=== PATIENT | male | born 1945 | race Caucasian/White ===

== ENCOUNTER 2022-08-23 11:18 | Outpatient (REF) | payer MEDICARE, SELFPAY ==
--- NOTE | ~2022-08-23 | XR_ITS ---
EXAMINATION: XR CERVICAL SPINE XR THORACIC SPINE XR LUMBAR SPINE XR SACROILIAC JOINTS CLINICAL INFORMATION: Ankylosing spondylitis. COMPARISON: None available. TECHNIQUE: Five-view cervical spine, 3 view thoracic spine, 5 view lumbosacral spine, and three-view sacroiliac joint study. FINDINGS: CERVICAL SPINE: No abnormal prevertebral soft tissue swelling is seen. Alignment is unremarkable. No acute fracture is evident. There is disc space narrowing seen at the C5-C6 level. There is some mild marginal spurring seen at C3-C7. There is some degenerative narrowing with spurring seen involving the anterior atlantoaxial space. No significant odontoid erosion is noted. There is some spurring of the joints of Luschka with some mild anterior neural foraminal encroachment seen at the C5-C6 level bilaterally. There is some facet degenerative change noted at C3-C5 on the right and at the C2-C3 level on the left. Carotid artery calcification is seen. THORACIC SPINE: AP and lateral views and swimmer's view of the thoracic spine were performed. No acute fracture is appreciated. No subluxation is seen. The disc spaces are generally maintained. There is spurring with disc space bridging throughout the thoracic spine with calcification of the anterior longitudinal ligament. No abnormal paraspinal line bulge is appreciated. There is minimal scoliosis present which may be positional in nature. LUMBAR SPINE: There are 5 cty-bbm-bvuqhnh lumbar vertebra. Disc space narrowing is seen at L3-S1 which is most significant at the L4-L5 and L5-S1 levels. There is facet arthropathy present at L3-S1. There is bony bridging seen at multiple levels with the appearance of bamboo spine. No acute fracture, spondylolisthesis, or spondylolysis is appreciated. The pedicles appear intact. There is elongation of the L5 transverse processes bilateral with pseudoarticulations, with the superior iliac bones (Bertolotti's syndrome). Calcified abdominal aorta is present without evidence of aneurysm. SACROILIAC JOINTS: There is irregularity of the sacroiliac joints bilaterally with narrowing and what appears to be some degree of fusion/ankylosis. No destructive bony lesion identified. XR/XR sacroiliac joint min 3V IMPRESSION: Degenerative disc disease and facet arthropathy at multiple levels as described above with some regions of ankylosis, with the appearance of bamboo spine and consistent with ankylosing spondylitis. Fusion of the sacroiliac joints with pseudoarticulations of transverse processes of L5 bilaterally.
--- NOTE | ~2022-08-23 | XR_ITS ---
EXAMINATION: XR CERVICAL SPINE XR THORACIC SPINE XR LUMBAR SPINE XR SACROILIAC JOINTS CLINICAL INFORMATION: Ankylosing spondylitis. COMPARISON: None available. TECHNIQUE: Five-view cervical spine, 3 view thoracic spine, 5 view lumbosacral spine, and three-view sacroiliac joint study. FINDINGS: CERVICAL SPINE: No abnormal prevertebral soft tissue swelling is seen. Alignment is unremarkable. No acute fracture is evident. There is disc space narrowing seen at the C5-C6 level. There is some mild marginal spurring seen at C3-C7. There is some degenerative narrowing with spurring seen involving the anterior atlantoaxial space. No significant odontoid erosion is noted. There is some spurring of the joints of L[place]chka with some mild anterior neural foraminal encroachment seen at the C5-C6 level bilaterally. There is some facet degenerative change noted at C3-C5 on the right and at the C2-C3 level on the left. Carotid artery calcification is seen. THORACIC SPINE: AP and lateral views and swimmer's view of the thoracic spine were performed. No acute fracture is appreciated. No subluxation is seen. The disc spaces are generally maintained. There is spurring with disc space bridging throughout the thoracic spine with calcification of the anterior longitudinal ligament. No abnormal paraspinal line bulge is appreciated. There is minimal scoliosis present which may be positional in nature. LUMBAR SPINE: There are 5 fhj-ygz-fihlapo lumbar vertebra. Disc space narrowing is seen at L3-S1 which is most significant at the L4-L5 and L5-S1 levels. There is facet arthropathy present at L3-S1. There is bony bridging seen at multiple levels with the appearance of bamboo spine. No acute fracture, spondylolisthesis, or spondylolysis is appreciated. The pedicles appear intact. There is elongation of the L5 transverse processes bilateral with pseudoarticulations, with the superior iliac bones (Bertolotti's syndrome). Calcified abdominal aorta is present without evidence of aneurysm. SACROILIAC JOINTS: There is irregularity of the sacroiliac joints bilaterally with narrowing and what appears to be some degree of fusion/ankylosis. No destructive bony lesion identified. XR/XR lumbar spine 4V min IMPRESSION: Degenerative disc disease and facet arthropathy at multiple levels as described above with some regions of ankylosis, with the appearance of bamboo spine and consistent with ankylosing spondylitis. Fusion of the sacroiliac joints with pseudoarticulations of transverse processes of L5 bilaterally.
--- NOTE | ~2022-08-23 | XR_ITS ---
EXAMINATION: XR CERVICAL SPINE XR THORACIC SPINE XR LUMBAR SPINE XR SACROILIAC JOINTS CLINICAL INFORMATION: Ankylosing spondylitis. COMPARISON: None available. TECHNIQUE: Five-view cervical spine, 3 view thoracic spine, 5 view lumbosacral spine, and three-view sacroiliac joint study. FINDINGS: CERVICAL SPINE: No abnormal prevertebral soft tissue swelling is seen. Alignment is unremarkable. No acute fracture is evident. There is disc space narrowing seen at the C5-C6 level. There is some mild marginal spurring seen at C3-C7. There is some degenerative narrowing with spurring seen involving the anterior atlantoaxial space. No significant odontoid erosion is noted. There is some spurring of the joints of [place]chka with some mild anterior neural foraminal encroachment seen at the C5-C6 level bilaterally. There is some facet degenerative change noted at C3-C5 on the right and at the C2-C3 level on the left. Carotid artery calcification is seen. THORACIC SPINE: AP and lateral views and swimmer's view of the thoracic spine were performed. No acute fracture is appreciated. No subluxation is seen. The disc spaces are generally maintained. There is spurring with disc space bridging throughout the thoracic spine with calcification of the anterior longitudinal ligament. No abnormal paraspinal line bulge is appreciated. There is minimal scoliosis present which may be positional in nature. LUMBAR SPINE: There are 5 [id number]-[id number]-[id number] lumbar vertebra. Disc space narrowing is seen at L3-S1 which is most significant at the L4-L5 and L5-S1 levels. There is facet arthropathy present at L3-S1. There is bony bridging seen at multiple levels with the appearance of bamboo spine. No acute fracture, spondylolisthesis, or spondylolysis is appreciated. The pedicles appear intact. There is elongation of the L5 transverse processes bilateral with pseudoarticulations, with the superior iliac bones (Bertolotti's syndrome). Calcified abdominal aorta is present without evidence of aneurysm. SACROILIAC JOINTS: There is irregularity of the sacroiliac joints bilaterally with narrowing and what appears to be some degree of fusion/ankylosis. No destructive bony lesion identified. XR/XR cervical spine 4V IMPRESSION: Degenerative disc disease and facet arthropathy at multiple levels as described above with some regions of ankylosis, with the appearance of bamboo spine and consistent with ankylosing spondylitis. Fusion of the sacroiliac joints with pseudoarticulations of transverse processes of L5 bilaterally.
--- NOTE | ~2022-08-23 | XR_ITS ---
EXAMINATION: XR CERVICAL SPINE XR THORACIC SPINE XR LUMBAR SPINE XR SACROILIAC JOINTS CLINICAL INFORMATION: Ankylosing spondylitis. COMPARISON: None available. TECHNIQUE: Five-view cervical spine, 3 view thoracic spine, 5 view lumbosacral spine, and three-view sacroiliac joint study. FINDINGS: CERVICAL SPINE: No abnormal prevertebral soft tissue swelling is seen. Alignment is unremarkable. No acute fracture is evident. There is disc space narrowing seen at the C5-C6 level. There is some mild marginal spurring seen at C3-C7. There is some degenerative narrowing with spurring seen involving the anterior atlantoaxial space. No significant odontoid erosion is noted. There is some spurring of the joints of L[place]chka with some mild anterior neural foraminal encroachment seen at the C5-C6 level bilaterally. There is some facet degenerative change noted at C3-C5 on the right and at the C2-C3 level on the left. Carotid artery calcification is seen. THORACIC SPINE: AP and lateral views and swimmer's view of the thoracic spine were performed. No acute fracture is appreciated. No subluxation is seen. The disc spaces are generally maintained. There is spurring with disc space bridging throughout the thoracic spine with calcification of the anterior longitudinal ligament. No abnormal paraspinal line bulge is appreciated. There is minimal scoliosis present which may be positional in nature. LUMBAR SPINE: There are 5 cti-okx-mpntsrj lumbar vertebra. Disc space narrowing is seen at L3-S1 which is most significant at the L4-L5 and L5-S1 levels. There is facet arthropathy present at L3-S1. There is bony bridging seen at multiple levels with the appearance of bamboo spine. No acute fracture, spondylolisthesis, or spondylolysis is appreciated. The pedicles appear intact. There is elongation of the L5 transverse processes bilateral with pseudoarticulations, with the superior iliac bones (Bertolotti's syndrome). Calcified abdominal aorta is present without evidence of aneurysm. SACROILIAC JOINTS: There is irregularity of the sacroiliac joints bilaterally with narrowing and what appears to be some degree of fusion/ankylosis. No destructive bony lesion identified. XR/XR thoracic spine 3V IMPRESSION: Degenerative disc disease and facet arthropathy at multiple levels as described above with some regions of ankylosis, with the appearance of bamboo spine and consistent with ankylosing spondylitis. Fusion of the sacroiliac joints with pseudoarticulations of transverse processes of L5 bilaterally.
[2022-08-23 12:53] LABS: MANUAL DIFF FLAG NO
[2022-08-23 13:21] LABS: Basophils Percent Auto 0.4 % (0-2); Eosinophils Percent Auto 0.4 % (0-4); Hematocrit 39.7 % (42.0-52.0); Imm Gran Abs Auto 0.02 X10*3/uL (0.00-0.03); Imm Gran Pct Auto 0.2 % (0.0-0.4); Lymphocytes Absolute Auto 1.5 X10*3/uL (1.2-4.9); Lymphocytes Percent Auto 17.5 % (20-40); Mean Corpuscular HGB Conc 32.7 g/dl (31.0-36.0); Mean Corpuscular Hemoglobin 29.5 pg (27.0-33.0); Mean Platelet Volume 9.5 fL (9.4-12.4); Monocytes Absolute Auto 0.5 X10*3/uL (0.1-1.2); Monocytes Percent Auto 6.1 % (2-11); Neutrophils Absolute Auto 6.3 x10*3/uL (2.0-8.3); Neutrophils Percent Auto 75.4 % (45-73); Platelet Count 227 X10*3/uL (160-400); Red Blood Count 4.41 X10*6/uL (4.60-5.80); Red Cell Distribution Width 13.8 % (11.0-16.0); White Blood Count 8.4 X10*3/uL (4.8-10.8)
[2022-08-23 14:05] LABS: Alanine Aminotransferase 12 U/L (0-40); Albumin Level 4.1 g/dL (3.5-5.0); Alkaline Phosphatase 52 U/L (39-117); Anion Gap 11 (12-20); Aspartate Amino Transferase 18 U/L (5-37); Bilirubin Total 0.8 mg/dL (0.0-1.0); Blood Urea Nitrogen 14 mg/dL (9-16); C Reactive Protein 0.21 mg/dL (< or = 0.50); Carbon Dioxide 28 mmol/L (22-29); Chloride 106 mmol/L (96-108); Erythrocyte Sedimentation Rate 21 MM/HR (0-15); Estimated Glomerular Filt Rate > 60; Glucose Random 100 mg/dL (60-115); Potassium 4.2 mmol/L (3.3-5.1); Rheumatoid Factor < 13.0 IU/mL (<15.0); Sodium 141 mmol/L (135-145); Total Protein 6.6 g/dL (6.5-8.0)
[2022-08-24 04:41] LABS: HBS Num1 0.31 mIU/mL (0-7.99); HBc Num1 0.08 S/CO (0.00-0.79); HBsAGNum1 0.34 S/CO (0.00-0.99); Hepatitis A Antibody IgM 0.17 Index (0-0.79); Hepatitis B Core Antibody Nonreactive (Nonreactive); Hepatitis B Surface Antigen Negative (Negative); ~HepC Num1 0.09 S/CO (0.00-0.79); ~Hepatitis A Antibody IgM Nonreactive (Nonreactive); ~Hepatitis B Surface Antibody NONREACTIVE (Nonreactive); ~Hepatitis C Antibody Nonreactive (Nonreactive)
[2022-08-25 13:04] LABS: TS Negative Control Passed; TS Panel A 0; TS Panel B 0; TS Positive Control Passed; TSpotTB Negative (Negative)
[2022-08-29 09:24] LABS: HLA B27 Negative (Negative)
[2022-08-29 12:19] LABS: IgA 334 mg/dL (70-320); IgG 887 mg/dL (600-1540); IgM 79 mg/dL (50-300)
[2022-08-29 12:53] LABS: Cyclic Citrullinated Peptide <16 UNITS
[2022-08-31 21:53] LABS: Prot Elec - Albumin 3.9 g/dL (3.8-4.8); Prot Elec - Alpha1 0.3 g/dL (0.2-0.3); Prot Elec - Alpha2 0.8 g/dL (0.5-0.9); Prot Elec - Beta 1 0.6 g/dL (0.4-0.6); Prot Elec - Beta 2 0.3 g/dL (0.2-0.5); Prot Elec - Gamma 0.9 g/dL (0.8-1.7); Prot Elec - Total Protein 6.7 g/dL (6.1-8.1)
== END 2022-08-23 11:19 | disposition home or self-care (01) ==
LOC: HO.LAB 11:18
PROVIDERS: Visit Provider Student in an Organized Health Care Education/Training Program
DX: Z11.59 Encounter for screening for other viral diseases (principal); Z11.7 Encounter for testing for latent tuberculosis infection; M45.9 Ankylosing spondylitis of unspecified sites in spine; M25.571 Pain in right ankle and joints of right foot; M45.0 Ankylosing spondylitis of multiple sites in spine; Z72.89 Other problems related to lifestyle
CPT/HCPCS: 36415; 72050; 72072; 72110; 72202; 80053; 82784; 84165; 85025; 85652; 86140; 86200; 86334; 86431; 86481; 86704; 86706; 86709; 86803; 86812; 87340; 99202

== ENCOUNTER 2022-11-23 11:56 | Outpatient (AMB) | payer MEDICARE, SELFPAY ==
--- NOTE | 2022-11-23 11:57 | MHC.OFFVIS ---
Intake Vital Signs 11/23/22 11:58 Height 6 ft Weight 171 lb 11.841 oz BMI 23.3 BP 140/72 H Blood Pressure Location Rt brachial Position Sitting Pulse 63 Pulse Source Pulse Oximeter Temp 98.0 F Temp Source Skin Pulse Oximetry (%) 96 Intake Visit Reasons: - Confirmed Intake Note: Pt seen today for follow up. Control Chemist Required: No Accompanied by: Self / Same As Patient Allergies oxycodone [From OxyContin] Adverse Reaction (Unknown, Unverified 11/23/22 12:03) Unknown sulfadiazine Adverse Reaction (Unknown, Unverified 11/23/22 12:03) Unknown Medication List - Last Reconciled 11/23/22 by Juan Melvin MD amlodipine 2.5 mg PO DAILY donepezil 5 mg PO DAILY folic acid 5 mg PO DAILY hydrocodone-acetaminophen 7.5-325 mg 1 tab PO Q8H PRN indomethacin ER 75 mg PO DAILY PRN methotrexate sodium 20 mg PO QWEEK pravastatin 80 mg PO DAILY HPI HPI Comments History of Present Illness Details 77-year-old male with ankylosing spondylitis returns for follow-up. Back in August patient developed an episode of bilateral loss of vision that lasted about 15 seconds. He had extensive evaluation by Neurology and vascular surgery. He had CT angiogram of the head and neck as well as an MRI of the brain. He states that no added therapy or procedure was suggested by multiple specialists. He has not had any recurrent symptoms. Patient continues to get intermittent episodes of central back pain and spasms. He takes indomethacin for these episodes which occur about once a month. Which provides moderate relief. More recently he has been having right knee pain swelling, as well as feeling that his knee leonardo. He denies any trauma to his knees. He had a steroid injection last month for his right knee which provided some relief. He denies any pain or swelling of his hands, fingers or toes. Initial history: This is a 77-year-old male with past medical history of ankylosing spondylitis who presents as a new patient. 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 Patient stated that around 25 years ago he was diagnosed with iritis and ultimately was diagnosed with ankylosing spondylitis. He was initially treated only with hydrocodone 10 in the medicine was added. Per patient he does not recall being started on a biologic until he was evaluated by Dr. Urbina 2-3 years ago when he was started on methotrexate. Patient stated that he would usually get iritis about once a year but since getting started on iritis it has been less frequent. He cannot tell whether methotrexate is helping him otherwise. Per Dr. Urbina patient's inflammatory markers normalized on methotrexate. States that he has morning stiffness of his back lasting 1 hour improved with stretching and moving around. He had a stroke 2-3 years ago and since then has had some swallowing difficulties but does not believe he food gets stuck in his throat or chest. Denies any bowel complaints. He had a colonoscopy years ago which was unremarkable. 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 GERD (gastroesophageal reflux disease) Hyperlipidemia Hypertension Peripheral vascular disease Surgical History History of esophagogastroduodenoscopy (EGD) Hx of colonoscopy Family History Mother Dementia Schizophrenia Bipolar 1 disorder Father AAA (abdominal aortic aneurysm) Bladder cancer Dementia Hyperlipidemia Hypertension Rheumatoid arthritis Social History Household Members: None Alcohol intake: former Patient Tobacco Use Status: Former Tobacco user Quit Date: 40 years ago Current occupational status: retired Current occupation: [employer] Review of Systems Musc Reports arthralgias, Reports joint swelling and Reports stiffness Skin/Breast Reports system reviewed and no additional complaints, except as documented Physical Exam Vital Signs: Last Vital Signs Temp 98.0 F 11/23/22 11:58 Pulse 63 11/23/22 11:58 BP 140/72 H 11/23/22 11:58 Pulse Ox 96 11/23/22 11:58 BMI result Body Mass Index 23.3 Const General: cooperative and healthy appearing Nutritional Appearance: average body habitus Orientation/consciousness: patient oriented x3 Limitations: no limitations HEENT Head: Yes normocephalic and Yes atraumatic Resp Effort & Inspection: normal respiratory effort and able to speak in complete sentences Auscultation: clear to auscultation bilaterally Cardio Rate: regular rate Rhythm: regular rhythm Heart sounds: S1 normal heart sound present GI Inspection: No distended Palpation (GI): Soft to palpation and nontender Neuro General: patient oriented x3 Extrem Other: Ana test 10-112.8 cm Negative Trevin's test bilaterally Osteoarthritic changes of both hands with Heberden's and Mimi's nodes Right foot deformity bilateral ankle swelling without tenderness or erythema Right knee swelling, more and tenderness and pain with any range of motion. Clicking with Anna's test Right 2nd 3rd and 4th MTP tenderness Assessment & Plan Assessment & Plan (1) Ankylosing spondylitis: Comment: dx around 1997. hx of iritis Was on hydrocodone and indomethacin until MTX started without recurrent iritis Code(s): M45.9 - Ankylosing spondylitis of unspecified sites in spine Qualifiers: Ankylosing spondylitis location: multiple sites in spine Qualified Code(s): M45.0 - Ankylosing spondylitis of multiple sites in spine Plan: This is a 77-year-old male with ankylosing spondylitis who presents for follow-up. Patient was diagnosed 25 years ago, he had recurrent iritis and back stiffness. On exam today patient has a swollen and tender right knee. Will order a right knee MRI to evaluate for internal derangement verses signs of inflammatory arthritis. We discussed adding Humira to his treatment regimen. Patient prefers not to add any medications at this point. Continue methotrexate 20 mg once weekly and folic acid daily. Can continue to use indomethacin as needed, patient uses it about once a month. Follow-up in 3 months. 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
[2022-11-23 11:58] VITALS: BP 140/72; PULSE 63; TEMP 36.7; O2SAT 96; BMI 23.3
== END 2022-11-23 12:33 | disposition home or self-care (01) ==
PROVIDERS: Visit Provider Student in an Organized Health Care Education/Training Program
DX: M45.0 Ankylosing spondylitis of multiple sites in spine (principal); Z79.631 Long term (current) use of antimetabolite agent
CPT/HCPCS: 99214

== ENCOUNTER → 2022-11-23 11:56 | Outpatient (BNVA) | payer MEDICARE, SELFPAY | PROVIDERS: Visit Provider Student in an Organized Health Care Education/Training Program | DX: M45.0 Ankylosing spondylitis of multiple sites in spine (principal); M23.91 Unspecified internal derangement of right knee; I73.9 Peripheral vascular disease, unspecified; Z79.631 Long term (current) use of antimetabolite agent | CPT/HCPCS: 99212 ==

== ENCOUNTER 2023-04-21 13:14 | Outpatient (AMB) | payer MEDICARE, SELFPAY ==
[2023-04-21 13:25] VITALS: BP 132/78; RESP 15; TEMP 36.4; BMI 22.3
--- NOTE | 2023-04-21 13:25 | A.OFFVIS_ITS ---
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 Allergies oxycodone [From OxyContin] Adverse Reaction (Unknown, Unverified 04/21/23 13:27) Unknown sulfadiazine Adverse Reaction (Unknown, Unverified 04/21/23 13:27) Unknown Medication List - Last Reconciled 04/21/23 by Raquel Sullivan RN amlodipine 2.5 mg PO DAILY aspirin 81 mg PO DAILY cholecalciferol (vitamin D3) 125 mcg PO DAILY donepezil 5 mg PO DAILY ferrous sulfate 325 mg PO DAILY folic acid 5 mg PO DAILY hydrocodone-acetaminophen 7.5-325 mg 1 tab PO Q8H PRN indomethacin ER 75 mg PO DAILY PRN magnesium oxide 250 mg PO DAILY methotrexate sodium 20 mg (8 x 2.5 mg) PO QWEEK multivitamin (Daily Multi-Vitamin tablet) 1 tab PO DAILY pravastatin 80 mg PO DAILY HPI HPI Comments History of Present Illness Details 77-year-old male with ankylosing spondyl itis returns for follow-up. On methotrexate 20 mg weekly and folic acid 5 mg daily. (he buys folic acid [id number]) Patient states that he is doing about the same overall. About a month ago he started having a flare-up of his spinal arthritis, he was having neck pain and u pper back pain as well as eye pain and blurry vision. He called his PCP who prescribed him eyedrops which controlled his eye symptoms in 1 day. He states that his main problem is bilateral lower extremity neuropathy and right knee pain. Mentions that he was admitted with pneumonia back in February for 3 days. Initial history: This is a 77-year-old male with past medical history of ankylosing spondylitis who presents as a new patient. 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 Patient stated that around 25 years ago he was diagnosed with iritis and ultimately was diagnosed with ankylosing spondylitis. He was initially treated only with hydrocodone 10 in the medicine was added. Per patient he does not recall being started on a biologic until he was evaluated by Dr. Urbina 2-3 years ago when he was started on methotrexate. Patient stated that he would usually get iritis about once a year but since getting started on iritis it has been less frequent. He cannot tell whether me thotrexate is helping him otherwise. Per Dr. Urbina patient's inflammatory markers normalized on methotrexate. States that he has morning stiffness of his back lasting 1 hour improved with stretching and moving around. He had a stroke 2-3 years ago and since then has had some swallowing difficulties but does not believe he food gets stuck in his throat or chest. Denies any bowel complaints. He had a colonoscopy years ago which was unremarkable. 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 Review of Systems Musc Reports arthralgias, Reports numbness and Reports stiffness Skin/Breast Reports system reviewed and no additional complaints, except as documented Neuro Reports numbness Physical Exam Vital Signs: Last Vital Signs Temp 97.5 F 04/21/23 13:25 Resp 15 04/21/23 13:25 BP 132/78 04/21/23 13:25 BMI result Body Mass Index 22.3 Const General: cooperative and healthy appearing Nutritional Appearance: average body habitus Orientation/consciousness: patient oriented x3 Limitations: no limitations HEENT Head: Yes normocephalic and Yes atraumatic Resp Effort & Inspection: normal respiratory effort and able to speak in complete sentences Auscultation: clear to auscultation bilaterally Cardio Rate: regular rate Rhythm: regular rhythm Heart sounds: S1 normal heart sound present GI Inspection: No distended Palpation (GI): Soft to palpation and nontender Neuro General: patient oriented x3 Extrem Other: Negative Trevin's test bilaterally Osteoarthritic changes of both hands with Heberden's and Mimi's nodes Significant bilateral knee crepitus Right knee pain with flexion and extension Right foot deformity no ankle swelling or tenderness today Office Procedures Joint Injection/Drain Joint Injection/Drain Primary Site: right knee Prep: site was prepped using sterile technique and ethochloride spray was applied Injected: 40 mg of, Kenalog and other (2 mL of 1% lidocaine) Approach Used: medial parapatellar Procedure: The patient tolerated the procedure well Coding Details: With the patient's consent the right knee was prepped with ChloraPrep and alcohol. The skin was anesthetized with 2 cc of 1% lidocaine. The knee was then injected with 40 mg of triamcinolone and 1 cc of I % lidocaine. The patient tolerated the procedure with no immediate adverse effects. - Large joint Procedure code (CPT) selection complete Assessment & Plan Assessment & Plan (1) Ankylosing spondylitis: Comment: dx around 1997. hx of iritis Was on hydrocodone and indomethacin until MTX started (since then has been getting recurrent uveitis less than once yearly, rapidly resolves with steroid eye drop) Code(s): M45.9 - Ankylosing spondylitis of unspecified sites in spine Qualifiers: Ankylosing spondylitis location: multiple sites in spine Qualified Code(s): M45.0 - Ankylosing spondylitis of multiple sites in spine Plan: This is a 77-year-old male with ankylosing spondylitis who presents for follow- up. Patient was diagnosed 25 years ago, he had recurrent iritis and back stiffness. Patient has done fairly well on methotrexate over the years He continues to get rare flare-ups including spinal pain and uveitis. Uveitis episodes occur less than once a year and rapidly resolved with steroid eyedrops. He was admitted to the hospital with pneumonia back in February for 3 days. We discussed the risks and benefits of advancing his DMARD treatment versus keeping the treatment as is. For now I advised patient to split methotrexate in to 4 tabs twice. Continue with folic acid 5 mg daily (patient buys folic acid [id number]) Labs in 3 months and in 6 months before next visit (2) group home methotrexate user: Code(s): Z79.631 - group home (current) use of antimetabolite agent Plan: Get routine safety monitoring labs every 3 (3) Osteoarthritis of right knee: Code(s): M17.11 - Unilateral primary osteoarthritis, right knee Qualifiers: Osteoarthritis type: primary Qualified Code(s): M17.11 - Unilateral primary osteoarthritis, right knee Plan: Right knee MRI 11/2022 showed synovitis as well as torn medial meniscus and chronically torn ACL in addition to tricompartmental osteoarthritis. Patient does not have any significant instability. He is not interested in orthopedics evaluation at this point. With patient's consent, right knee was injected with Kenalog today. Injections can be repeated every 3-4 months (4) Internal derangement of knee: Code(s): M23.90 - Unspecified internal derangement of unspecified knee Qualifiers: Laterality: right Qualified Code(s): M23.91 - Unspecified internal derangement of right knee (5) Immunization counseling: Code(s): Z71.85 - Encounter for immunization safety counseling Plan: Patient received flu vaccine and COVID booster for this season. Advised patient to get the RSV vaccine. Hold methotrexate 2 weeks after vaccination Plan I spent 45 minutes reviewing patient's chart, evaluating patient, ordering diagnostic workup, counseling patient and documenting in the chart Orders: Orders Comprehensive Met. 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
== END 2023-04-21 14:11 | disposition home or self-care (01) ==
LOC: HO.RHE 13:14
PROVIDERS: Visit Provider Student in an Organized Health Care Education/Training Program
DX: M45.0 Ankylosing spondylitis of multiple sites in spine (principal); Z79.631 Long term (current) use of antimetabolite agent; M17.11 Unilateral primary osteoarthritis, right knee; M23.91 Unspecified internal derangement of right knee; Z71.85 Encounter for immunization safety counseling
CPT/HCPCS: 20610; 99215

== ENCOUNTER → 2023-04-21 13:14 | Outpatient (BNVA) | payer MEDICARE, SELFPAY | PROVIDERS: Visit Provider Student in an Organized Health Care Education/Training Program | DX: M17.11 Unilateral primary osteoarthritis, right knee (principal); M23.91 Unspecified internal derangement of right knee; M45.0 Ankylosing spondylitis of multiple sites in spine; Z79.631 Long term (current) use of antimetabolite agent | CPT/HCPCS: 20610; 99212; J3301 ==

== ENCOUNTER 2023-10-19 12:53 | Outpatient (AMB) | payer MEDICARE, SELFPAY ==
--- NOTE | 2023-10-19 12:55 | MHC.OFFVIS ---
Vital Signs 10/19/23 12:59 Height 6 ft Weight 161 lb 13.109 oz BMI 21.9 BP 130/72 Blood Pressure Location Rt brachial Position Sitting Respiration 15 Pulse 57 Pulse Source Pulse Oximeter Pulse Oximetry (%) 96 Oxygen Delivery Method Room Air Intake Visit Reasons: /lm Intake Note: Patient presents for . Allergies oxycodone [From OxyContin] Adverse Reaction (Unknown, Verified 10/19/23 13:00) Unknown sulfadiazine Adverse Reaction (Unknown, Verified 10/19/23 13:00) Unknown Medication List - Last Reconciled 10/19/23 by Juan Melvin MD amlodipine 2.5 mg PO DAILY aspirin 81 mg PO DAILY cholecalciferol (vitamin D3) 125 mcg PO DAILY donepezil 5 mg PO DAILY ferrous sulfate 325 mg PO DAILY folic acid 5 mg PO DAILY hydrocodone-acetaminophen 7.5-325 mg 1 tab PO Q8H PRN indomethacin ER 75 mg PO DAILY PRN magnesium oxide 250 mg PO DAILY methotrexate sodium 20 mg (8 x 2.5 mg) PO QWEEK multivitamin (Daily Multi-Vitamin tablet) 1 tab PO DAILY pravastatin 80 mg PO DAILY HPI Comments Details: 77-year-old male with ankylosing spondylitis returns for follow-up. On methotrexate 20 mg weekly and folic acid 5 mg daily. (he buys folic acid [id number]) Patient states that he is doing about the same overall. States that he had a tick bite as well as a house fly bite in his back, he was evaluated and the tick was pulled but not completely and was prescribed doxycycline. He took for day so far. He continues to have redness in the left side of his back. He states that the right knee injection done last visit I would it relief for 3-4 months. He is now starting to have some pain and stiffness of his knees, especially the right knee. Not had any episodes of iritis over the last 6 months Initial history: This is a 77-year-old male with past medical history of ankylosing spondylitis who presents as a new patient. 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 Patient stated that around 25 years ago he was diagnosed with iritis and ultimately was diagnosed with ankylosing spondylitis. He was initially treated only with hydrocodone 10 in the medicine was added. Per patient he does not recall being started on a biologic until he was evaluated by Dr. Urbina 2-3 years ago when he was started on methotrexate. Patient stated that he would usually get iritis about once a year but since getting started on iritis it has been less frequent. He cannot tell whether methotrexate is helping him otherwise. Per Dr. Urbina patient's inflammatory markers normalized on methotrexate. States that he has morning stiffness of his back lasting 1 hour improved with stretching and moving around. He had a stroke 2-3 years ago and since then has had some swallowing difficulties but does not believe he food gets stuck in his throat or chest. Denies any bowel complaints. He had a colonoscopy years ago which was unremarkable. 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 Ankylosing spondylitis Surgical History Hx of colonoscopy History of esophagogastroduodenoscopy (EGD) Family History Mother Dementia Schizophrenia Bipolar 1 disorder Father AAA (abdominal aortic aneurysm) Bladder cancer Dementia Hyperlipidemia Hypertension Rheumatoid arthritis Social History Household Members: None Alcohol intake: former Patient Tobacco Use Status: Former Tobacco user Current occupational status: retired Current occupation: [employer] Review of Systems Eyes Reports no additional complaints Musc Reports arthralgias and Reports stiffness Skin/Breast Reports rash Physical Exam Vital Signs: BMI result Body Mass Index 21.9 Const General: cooperative and healthy appearing Nutritional Appearance: average body habitus Orientation/consciousness: patient oriented x3 Limitations: no limitations HEENT Head: Yes normocephalic and Yes atraumatic Resp Effort & Inspection: normal respiratory effort and able to speak in complete sentences Auscultation: clear to auscultation bilaterally Cardio Rate: regular rate Rhythm: regular rhythm Heart sounds: S1 normal heart sound present GI Inspection: No distended Palpation (GI): Soft to palpation and nontender Skin Other: An area of erythema and warmth overlying the left back, in the thoracic area. Consistent with cellulitis Neuro General: patient oriented x3 Extrem Other: Negative Trevin's test bilaterally Osteoarthritic changes of both hands with Heberden's and Mimi's nodes Significant bilateral knee crepitus Right knee pain with flexion and extension Right foot deformity no ankle swelling or tenderness today Office Procedures Joint Injection/Drain Joint Injection/Drain Primary Site: right knee Prep: site was prepped using sterile technique and ethochloride spray was applied Injected: 40 mg of, Kenalog, with 1 mL of, 1% plain lidocaine and other Approach Used: medial parapatellar Procedure: The patient tolerated the procedure well Coding Details: With the patient's consent the right knee was prepped with ChloraPrep and alcohol. The skin was anesthetized with 2 cc of 1% lidocaine. The knee was then injected with 40 mg of triamcinolone and 1 cc of I % lidocaine. The patient tolerated the procedure with no immediate adverse effects. - Large joint Procedure code (CPT) selection complete Assessment & Plan Assessment & Plan (1) Ankylosing spondylitis: Comment: dx around 1997. hx of iritis Was on hydrocodone and indomethacin until MTX started (since then has been getting recurrent uveitis less than once yearly, rapidly resolves with steroid eye drop) Code(s): M45.9 - Ankylosing spondylitis of unspecified sites in spine Category: Medical Qualifiers: Ankylosing spondylitis location: multiple sites in spine Qualified Code(s): M45.0 - Ankylosing spondylitis of multiple sites in spine Plan: This is a 77-year-old male with ankylosing spondylitis who presents for follow-up. Patient was diagnosed 25 years ago, he had recurrent iritis and back stiffness. Patient has done fairly well on methotrexate over the years He continues to get rare flare-ups including spinal pain and uveitis. Uveitis episodes occur less than once a year and rapidly resolved with steroid eyedrops. Patient is doing reasonably well overall. Symptoms today are more related to degenerative arthritis. 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 Patient does not have any significant instability. He is not interested in orthopedics evaluation at this point. Last injection provided relief for 3-4 months. Day patient requesting repeat injection. With patient's consent, right knee was injected with Kenalog today. Injections can be repeated every 3-4 months (4) Internal derangement of knee: Code(s): M23.90 - Unspecified internal derangement of unspecified knee Category: Medical Qualifiers: Laterality: right Qualified Code(s): M23.91 - Unspecified internal derangement of right knee Plan: Right knee meniscal tear. Not interested in orthopedic evaluation at this point at this point (5) Cellulitis of back: Code(s): L03.312 - Cellulitis of back [any part except buttock] Category: Medical Plan: Advised patient to skip methotrexate next week. 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
[2023-10-19 12:59] VITALS: BP 130/72; PULSE 57; RESP 15; O2SAT 96; BMI 21.9
== END 2023-10-19 13:29 | disposition home or self-care (01) ==
PROVIDERS: Visit Provider Student in an Organized Health Care Education/Training Program
DX: M45.0 Ankylosing spondylitis of multiple sites in spine (principal); Z79.631 Long term (current) use of antimetabolite agent; M17.11 Unilateral primary osteoarthritis, right knee; M23.91 Unspecified internal derangement of right knee; L03.312 Cellulitis of back [any part except buttock and flank]
CPT/HCPCS: 20610; 99215

== ENCOUNTER → 2023-10-19 12:53 | Outpatient (BNVA) | payer MEDICARE, SELFPAY | PROVIDERS: Visit Provider Student in an Organized Health Care Education/Training Program | DX: M45.0 Ankylosing spondylitis of multiple sites in spine (principal); M17.11 Unilateral primary osteoarthritis, right knee; M23.91 Unspecified internal derangement of right knee; L03.312 Cellulitis of back [any part except buttock and flank]; Z79.631 Long term (current) use of antimetabolite agent | CPT/HCPCS: 20610; 99212 ==

== ENCOUNTER 2024-04-09 13:10 | Outpatient (AMB) | payer MEDICARE, SELFPAY ==
--- OUTSIDE RECORDS SUMMARY | 2024-04-09 13:12 | XMS_ITS | Data Portability ---
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 Plan of Treatment Reminders Order Date Submit Date Provider Last Modified By Organization Details Last Modified Time Details Appointments None recorded. Lab None recorded. Referral None recorded. Procedures None recorded. Surgeries None recorded. Imaging None recorded. Medication Orders doxycycline hyclate 100 mg capsule 2023 024 [facility] [place], [address], 15:17:18 doxycycline hyclate 100 mg capsule 2023 024 [facility] [place], [address], 12:09:49 Patient TargetsNo targets recorded. Patient Instructions Encounter Date Encounter Id Patient Instructions Last Modified By Organization Details Last Modified Time 09/17/2023 [id number] lyme disease: ca re instructions Not available 09/17/2023 15:17:11 tick bite: care instructions Not available 09/17/2023 15:17:35 avoid sun exposu re while on doxycycline local wound care for tick bite keep area clean, dry and covered apply triple antibiotic ointment to area twice daily watch for signs and symptoms of infection: increased pain, swelling, redness around area, warmth around area, oozing from wound, red streaking, fever if concern for infection or general worsening of your condition, seek immediate medical attention if you experience unusual rash, example Bulls eye appearing rash, fever, joint aches/pains seek immediate medical assistance You have had an Urgent Care Visit which is designed to address acute issues. It does not represent an exhaustive evaluation of your symptom complex, but is an attempt to treat and manage the most likely cause of your most pressing physical issues. If you are not improved in the time frame that we have discussed, please seek the advice of your PCP who is in a position to order further diagnostic testing and possible specialist consultation. If your condition is worsening despite the treatment recommendations please do not wait to see your PCP and do proceed to the closest ER where a comprehensive evaluation including consideration to lab and other diagnostic testing as well as consultation is more expeditiously accessible. If you were prescribed medications they have been directly submitted to your pharmacy on file. Please make sure you finish all your medications and if you develop major side effects related to them please do stop taking them and check with your PCP to see if you need to get an alternative medication. if you had any laboratory testing or XRAYs done at today's visit, please make sure you obtain your results from us tomorrow or the time frame discussed at your visit. Not available 09/17/2023 15:17:44 10/14/2023 [id number] Monitor for increasing redness, fevers, nausea, vomiting or additional concerns. [email or web address] Not available 10/14/2023 12:10:07 Reason for Referral None Reported. Medical Equipment None Reported. Allergies Allergen ID Allergen Name Allergen Category Reaction Reaction Severity Criticality Documentation Date Start Date Code Code System Note Provider Name and Address Organization Details Recorded Time [id number] Substance with sulfonami de structure and antibacte rial mechanism of action (substanc e) medicatio n itching severe Not available 09/17/[id number] [facility] 4 15:03:11 299217 acetamino phen / oxycodone medicatio n itching Not available Not available 09/17/[address] Kraus [place] [facility] 4 15:03:21 Medications Name Sig Start Date Stop Date Status Note LastModified by Organization Details LastModified Time doxycycline hyclate 100 mg capsule Take 1 capsule twice a day by oral route for 14 days. 024 active Not Available Not Available Not Avai lable Vitals Date Recorded Body height Body mass index (BMI) Body weight Body temperature Oxygen saturation Oxygen saturation in Arterial blood by Pulse oximetry Heart rate Systolic blood pressure Diastolic blood pressure Provider Name and Address Organization Details Last Updated DateTime 4 180.34 cm 23.7 kg/m2 57601.7 g 98 [degF] 97 % 97 % 60 /min 136 mm[Hg] 78 mm[Hg] Sola Sutton [place] [facility] 15:07:00 Date Recorded Body height Oxygen saturation Oxygen saturation in Arterial blood by Pulse oximetry Heart rate Body temperature Systolic blood pressure Diastolic blood pressure Provider Name and Address Organization Details Last Updated DateTime 4 180.34 cm 98 % 98 % 69 /min 97.9 [degF] 130 mm[Hg] 70 mm[Hg] Real Dela Cruz [facility] 11:42:57 Social History None recorded. Functional Status None recorded. Mental Status None recorded. Family History Nothing Reported. Medical History No medical history recorded. Past Encounters Encounter ID Performer Location Encounter Start Date Encounter Closed Date Diagnosis/Indication Diagnosis SNOMED-CT Code Diagnosis ICD10 Code [id number] Kelly Duenas MD [address] [address] 09/17/2023 14:48:06 09/17/2023 15:36:08 Tick bite 63853894 W57.XXXA Insect bit e to trunk - nonvenomous [id number] T14.8XXA [id number] Kylee Arias NP [address] [address] 10/14/2023 10:56:45 10/14/2023 12:16:15 Cellulitis 475355188 L03.90 Health Concerns Section Related Observation LastModified by Organization Detai ls LastModified Time None Recorded Concern Status LastModified by Organization Details LastModified Time None Recorded Advance Directives Directive None Recorded Payers Encounter Date Sequence Insurance Name Policy Number Policy Ackerman Covered Member ID Ackerman Member ID Guarantor Name 09/17/2023 1 [employer] - MEDICARE ADVANTAGE PLAN (MEDICARE REPLACEMENT HMO) [id number] 1 Daniele Ventura [id number] Daniele Ventura 10/14/2023 1 [facility] - MEDICARE ADVANTAGE PLAN (MEDICARE REPLACEMENT HMO) [id number] Daniele Ventura [id number] Daniele Ventura Notes Date Note Type Note Provider Name and Address Organization Details Recorded Time 09/17/2023 text/html 78 yr old male presents today due to a tick bite. Pt states the tick is embedded on the left hip/back. Pt attempted to have his friend remove it but was not successful. Pt believes that it may have been there for 3 to 4 days ago. DMB Patient presents with tick bite left hip region when trying to move it today not sure if it was removed in full. Might have been there for 3 or 4 days in total. No fever. [facility] Kelly Duenas MD [address] [place], [address], [facility] 09/17/2023 17:14:20 10/14/2023 text/html 78 y/o male presents today for insect bite. Pt states it happened a week ago. States he is unsure of what it is. States it is located on hi back. States it is not painful to touch. States the area is red. States he put triple antibiotic ointment on it. States he took one antibiotic that had left over to see if it did anything, unsure of what the name of it is.Z.L// Very active, bikes daily and lives alone. States he often gets bug bites while biking and may have had some bites he scratched and opened the skin-CM Kylee Arias NP [address] [facility] [place], [address], [facility] 10/14/2023 12:10:23
--- OUTSIDE RECORDS SUMMARY | 2024-04-09 13:12 | XMS_ITS | Continuity of Care Document ---
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 Name Role Phone Maria Vázquez DO Primary Care Physician [phone] [place] [facility] [place] 03/29[place]24 - 04/05/24 [facility] [address] [place] [address]- Encounter Diagnosis PVCs (premature ventricular contractions)(Discharge Diagnosis) - 03/29/24 Coronary artery calcification seen on CT scan(Discharge Diagnosis) - 03/29/24 Hyperlipidemia(Discharge Diagnosis) - 03/29/24 Hypertension(Discharge Diagnosis) - 03/29/24 Attending Physician: Enrique Byrd Admitting Physician: Enrique Byrd Referring Physician: Maria Vázquez DO Encounter Type: Office Visit Allergies, Adverse Reactions, Alerts Substance Criticality Severity Reaction Reaction Severity Status sulfADIAZINE Active OxyCONTIN Active Immunizations Given and Recorded Vaccine Date Status Refusal Reason influenza virus vaccine, inactivated 02/22/24 Spenser rded influenza virus vaccine, inactivated 02/22/23 Spenser rded influenza virus vaccine, inactivated 06/03/22 Give n influenza virus vaccine, inactivated 02/01/21 Spenser rded influenza virus vaccine, inactivated 02/21/18 Spenser rded influenza virus vaccine, inactivated 03/10/17 Give n influenza virus vaccine, inactivated 02/19/16 Give n influenza virus vaccine, inactivated 04/11/14 Give n influenza virus vaccine, inactivated 02/19/13 Give n influenza virus vaccine, inactivated 1 04/13/12 Gi ottoniel SARS-CoV-2(COVID-19)mRNA-LNP vac([id number]) 02/22/24 Recorded pneumococcal 20-valent conjugate vaccine 03/28/23 Recorded SARS-CoV-2(COVID-19)mRNA-LNP vac([id number]) 02/22/23 Recorded SARS-CoV-2 (COVID-19) mRNA BNT-162b2 vac 08/18/21 Recorded SARS-CoV-2 (COVID-19) mRNA BNT-162b2 vac 02/01/21 Recorded SARS-CoV-2 (COVID-19) mRNA BNT-162b2 vac 06/16/20 Given SARS-CoV-2 (COVID-19) mRNA BNT-162b2 vac 06/16/20 Recorded SARS-CoV-2 (COVID-19) mRNA BNT-162b2 vac 05/26/20 Recorded pneumococcal 23-valent vaccine 2 12/07/20 Given pneumococcal 23-valent vaccine 3 02/03/10 Given Influenza Virus Vaccine (oldterm) 03/08/19 Recorde d tetanus-diphtheria toxoids (Td) 02/19/16 Given tetanus-diphtheria toxoids (Td) 4 12/13/05 Given pneumococcal 13-valent vaccine 10/10/14 Given 1Admin Note: vis given 2Result Comment: [id number] 3Admin Note: vis given 4Admin Note: [facility] Medications acetaminophen-hydrocodone 325 mg-7.5 mg oral tablet 1 tablet, By Mouth, Every 8 hours, PRN Pain , Severe, NEEDED FOR SEVERE PAIN DUE TO ANKYLOSING SPONDYLITIS, # 20 tablet, 0 Refills, Maintenance, 02/28/24 12:06:00 PM [id number], Partial fill upon patient request if the prescription is for a schedule II opioid drug., 1 tablet By Mouth Every 8 hours,PRN:Pain , Severe,Instr: NEEDED FOR SEVERE PAIN DUE TO ANKYLOSING SPONDYLITIS, 180, cm, 02/20/24 16:19:00 EDT, Height, 71.9, kg, 01/10/24 11:27:00 EDT, Dry Weight Start Date: 02/28/24 Status: Ordered Quantity: 20.0 Unit: tablet Repeat number: 1 albuterol CFC free 90 mcg/inh inhalation aerosol 1, puffs, Inhalation, 4 times a day, PRN, # 6.7 Gm, Refills 0, Tot. Refills 0, Maintenance, 02/20/23 1:08:00 PM EDT, Aerosol, Route to Pharmacy Electronically, [id number], [facility], 178, cm, 02/16/23 13:12:00 EDT, Height, 74.4, kg, 02/02/23 1:07:00 EDT, Dry Weight Start Date: 02/20/23 Status: Ordered Quantity: 6.7 Unit: g Repeat number: 1 amLODIPine 5 mg oral tablet 5 mg, 1, tablet, By Mouth, Daily, # 30 tablet, Refills 2, Tot. Refills 2, Maintenance, 03/29/24 4:27:00 PM EST, Route to Pharmacy Electronically, [facility], Partial fill upon patient request if the prescription is for a schedule II opioid drug., 180, cm, 03/29/24 16:11:00 EST, Height, 71.9, kg, 01/10/24 11:27:00 EDT, Dry Weight Start Date: 03/29/24 Status: Ordered Quantity: 30.0 Unit: tablet Repeat number: 3 aspirin 81 mg oral capsule 1 capsule = 81 mg, By Mouth, Every 24 hours, 0 Refills, Maintenance, 02/02/23 10:04:00 AM EDT, Partial fill upon patient request if the prescription is for a schedule II opioid drug. Start Date: 02/02/23 Status: Ordered Repeat number: 1 BiPAP Equipment Maintenance, 03/05/24 11:39:00 AM EST, Supply Start Date: 03/05/24 Status: Ordered Repeat number: 1 Compression Stockings See Instructions, # 1 pair, Maintenance, surgical, calf length 20-30 mm Hg, 06/26/14 2:01:42 PM EST, Compound Start Date: 06/26/14 Status: Ordered Quantity: 1.0 Unit: pair Repeat number: 1 donepezil 5 mg oral tablet 1, tablet, By Mouth, Daily at bedtime, # 90 tablet, Refills 1, Maintenance, 12/19/23 11:06:00 AM EDT, Route to Pharmacy Electronically, [facility], 175, cm, 12/18/23 14:46:00 EDT, Height, 78.1, kg, 07/14/23 14:14:00 EDT, Dry Weight Start Date: 12/19/23 Status: Ordered Quantity: 90.0 Unit: tablet Repeat number: 1 doxepin 10 mg/ml oral concentrate 1.5 mL = 15 mg, By Mouth, Daily at bedtime, # 135 mL, 0 Refills, Maintenance, 02/06/24 12:15:00 PM EDT, [facility], Partial fill upon patient request if the prescription is for a schedule II opioid drug., 180, cm, 01/31/24 15:37:00 EDT, Height, 71.9, kg, 01/10/24 11:27:00 EDT, Dry Weight Start Date: 02/06/24 Status: Ordered Quantity: 135.0 Unit: mL Repeat number: 1 Evaluate and treat for orthotics Evaluate and treat for orthotics, See Instructions, # 1 each, Refills 0, Tot. Refills 0, Maintenance, right foot deformity and pain, dx M21.6X1, M79.671, 09/17/20 7:21:00 AM EDT, Supply Start Date: 09/17/20 Status: Ordered Quantity: 1.0 Unit: each Repeat number: 1 folic acid 1 mg oral tablet 5 tablets, By Mouth, Daily, # 450 tablet, Refills 0, Tot. Refills 0, Maintenance, 07/05/22 2:23:00 PM EDT, Route to Pharmacy Electronically, [facility], Partial fill upon patient request ifthe prescription is for a schedule II opioid drug., 176, cm, 06/28/22 10:51:00 EST, Height, 78.5, kg, 06/03/22 13:22:00 EST, Dry Weight Start Date: 07/05/22 Stop Date: 10/03/22 Status: Ordered Quantity: 450.0 Unit: tablet Repeat number: 1 indomethacin 75 mg oral capsule, extended release 1 capsule = 75 mg, By Mouth, Daily, PRN acute back pain, with food or milk and TUMS., # 20 capsule,1 Refills, Maintenance, 01/10/23 12:37:00 PM EDT, CR Capsule, [facility], Partial fill upon patient request if the prescription is for a schedule II opioid drug., 176, cm, 01/10/23 9:28:00 EDT, Height, 78.5, kg, 06/03/22 13:22:00 EST, Dry Weight Start Date: 01/10/23 Status: Ordered Quantity: 20.0 Unit: capsule Repeat number: 2 Iron Chews 15 mg oral tablet, chewable 1 tablet = 15 mg, By Mouth, Daily, # 30 tablet, 0 Refills, Maintenance, 02/16/23 1:13:00 PM EDT, Chew Tablet, Partial fill upon patient request if the prescription is for a schedule II opioid drug. Start Date: 02/16/23 Status: Ordered Quantity: 30.0 Unit: tablet Repeat number: 1 magnesium aspartate = 1,230 mg, By Mouth, 2 times a day, 0 Refills, Maintenance, 11/10/23 4:09:00 PM EDT, Partial fill upon patient request if the prescription is for a schedule II opioid drug. Start Date: 11/10/23 Status: Ordered Repeat number: 1 methotrexate 2.5 mg oral tablet 8 tablet, By Mouth, Every week, # 32 tablet, 0 Refills, Maintenance, 01/16/23 5:23:00 PM EDT, [facility], 176, cm, 01/10/23 9:28:00 EDT, Height, 78.5, kg, 06/03/22 13:22:00 EST, Dry Weight Start Date: 01/16/23 Stop Date: 02/13/23 Status: Ordered Quantity: 32.0 Unit: tablet Repeat number: 1 MiraLax oral powder for reconstitution = 17 Gm, By Mouth, Daily, # 510 Gm, 0 Refills, Maintenance, 12/19/23 9:41:00 AM EDT, REC Powder, [facility], Partial fill upon patient request if the prescription is for a schedule II opioid drug., 17 Gm By Mouth Daily, 175, cm, 12/18/23 14:46:00 EDT, Height, 78.1, kg, 07/14/23 14:14:00 EDT, Dry Weight Start Date: 12/19/23 Status: Ordered Quantity: 510.0 Unit: g Repeat number: 1 Multivitamin By Mouth, Daily, 0 Refills, Maintenance, 05/01/15 1:39:51 PM EST Start Date: 05/01/15 Status: Ordered Repeat number: 1 Myrbetriq 25 mg oral tablet, extended release 1 tablet = 25 mg, By Mouth, Daily, do not crush or chew, # 30 tablet, 11 Refills, Maintenance, 01/15/24 3:21:00 PM EDT, ER Tablet, [facility], Partial fill upon patient request if the prescription is for a schedule II opioid drug., 180, cm, 01/05/24 14:27:00 EDT, Height, 71.9, kg, 01/10/24 11:27:00 EDT, Dry Weight Start Date: 01/15/24 Status: Ordered Quantity: 30.0 Unit: tablet Repeat number: 12 Orthotics See Instructions, # 1 pair, Maintenance, [employer] Custom orthotics 1. Siff Top 2. MT offloadng bar all the way across DX: metatarsalgia, 09/06/13 2:35:15 PM EDT, Compound Start Date: 09/06/13 Status: Ordered Quantity: 1.0 Unit: pair Repeat number: 1 pravastatin 80 mg oral tablet 1 tablet, By Mouth, Daily, # 90 tablet, 3 Refills, Maintenance, 07/24/23 12:25:00 PM EDT, [facility], 178, cm, 07/14/23 14:19:00 EDT, Height, 78.1, kg, 07/14/23 14:14:00 EDT, Dry Weight Start Date: 07/24/23 Status: Ordered Quantity: 90.0 Unit: tablet Repeat number: 4 PT PT, See Instructions, # 1 each, Refills 0, Tot. Refills 0, Maintenance, please eval pt for PT, 11/20/13 1:33:26 PM EDT, Compound Start Date: 11/20/13 Status: Ordered Quantity: 1.0 Unit: each Repeat number: 1 tadalafil 10 mg oral tablet See Instructions, take 1 - 2 tablets by mouth daily as needed 30 minutes prior to sexual intercourse, # 10 tablet, 2 Refills, Maintenance, 02/20/24 4:19:00 PM EDT, Tablet, [facility], Partial fill upon patient request if the prescription is for a schedule II opioid drug., 180, cm, 01/31/24 15:37:00 EDT, Height, 71.9, kg, 01/10/24 11:27:00 EDT, Dry Weight Start Date: 02/20/24 Status: Ordered Quantity: 10.0 Unit: tablet Repeat number: 3 Vitamin C By Mouth, Daily, 0 Refills, Maintenance, 11/10/23 4:09:00 PM EDT, Partial fill upon patient request if the prescription is for a schedule II opioid drug. Start Date: 11/10/23 Status: Ordered Repeat number: 1 Vitamin D3 By Mouth, 0 Refills, Maintenance, 12/18/13 10:23:14 AM EDT Start Date: 12/18/13 Status: Ordered Repeat number: 1 Problem List Condition Confirmation Course Effective Dates Status H ealth Status Informant Foot deformity, acquired Confirmed Active Ankylosing spondylitis Confirmed Active Asthma Confirmed Active Backache Confirmed Active BPH loc w/o ur obs/LUTS Confirmed Active Calcified granuloma of lung Confirmed Active Chronic rhinitis Confirmed Active Epididymal cyst Confirmed Active Dizziness Confirmed Active Erectile dysfunction Confirmed Active 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 Confirmed Active Bilateral foot pain Confirmed Active GERD - Gastro-esophageal reflux disease Confirmed Active H/O: CVA (2012), residual right numbness, swallow issue Confirmed Active Low hemoglobin Confirmed Active History of stroke in adulthood Confirmed Active Hyperlipidemia Confirmed Active Hypertension Confirmed Active Low calcium levels Confirmed Active Frequent urination Confirmed Active Pulmonary nodule, left Confirmed Active MONA (obstructive sleep apnea) Confirmed Active Lower extremity pain, right Confirmed Active Pericardial effusion Confirmed Active PVD (peripheral vascular disease) 1 Confirmed Active Pleural effusion Confirmed Active Restless legs Confirmed Active Shallow breathing Confirmed Active Unintentional weight loss Confirmed Active 1Dr [facility] Diagnosis Diagnosis Type Effective Dates Health Status Clinical Service Informant Hyperlipidemia Discharge Diagnosis 03/29/24 Hypertension Discharge Diagnosis 03/29/24 PVCs (premature ventricular contractions) Discharge Diagnosis 03/29/24 Coronary artery calcification seen on CT scan Discharge Diagnosis 03/29/24 Vital Signs Most recent to oldest [Reference Range]: 1 Height 180 cm (03/29/24 4:11 PM) Weight 77 kg (03/29/24 4:11 PM) Oxygen Saturation [94-100 %] 100 % (03/29/24 4:11 PM) Pulse Rate [55-90 bpm] 67 bpm (03/29/24 4:11 PM) Body Mass Index [18.5-24.99 kg/m2] 23.77 kg/m2 (03/29/24 4:11 PM) Blood Pressure [90-138/55-84 mm Hg] 189/ 69mm Hg *H* (03/29/24 4:11 PM) Blood pressure sites Arm, left (03/29/24 4:11 PM) Weight Obtained Via Standing scale (03/29/24 4:11 PM) Social History Social History Type Response Smoking Status Former smoker, quit more than 30 days ago entered on: 07/11/23 Sex Sex Representation Male (finding) Cardiology Outpatient Note * Enrique Byrd: PERFORM Event Display: Cardiology Note Office Authored Date: [id number] Patient: ??JOCE ANDERSON ? Age:??78 Years?Sex:??Male?:??1945?? Indication for Consult FOLLOW UP VISIT, HTN History of Present Illness/Interval History Mr. Anderson is here for follow up. He was last seen by Dr. Chamberlain in December 2023. At the time, he reported lightheadedness and palpitations. He was noted to have atrial fibrillation in the hospital January 2023 but was never started on anticoagulation. He was referred for 48h Holter monitor??to screen for atrial fibrillation. 48h Holter showed baseline normal sinus rhythm with rare PACs and PVCswith a single 8 beat run of SVT without evidence of atrial fibrillation.? He reports feeling good.??He is under some stress today??because his blood pressure is high. His blood pressures at home seem to average in the 170s.??He notes that he gets a little lightheaded and dizzy when he is working hard. He attributes this to high blood pressure. He denies presyncope or syncope.? He notes occasional sensation of skipped beats but they do not bother him.??He denies orthopnea, PND, or lower extremity edema. ?? He is fairly active. He cuts wood and shovels snow. He has no limiting exertional symptoms.?? Review of Systems See HPI Physical Exam Vitals & Measurements HR:??67??(Peripheral)?? BP:??189/69?? SpO2:??100%?? HT:??180??cm?? WT:??77??kg?? BMI:??23.77?? Weight lb/oz: 169 lb 12 oz Constitutional: Alert, in no distress. Respiratory: Clear to auscultation. No wheezing, rales or rhonchi. Cardiovascular: Regular rate and rhythm, S1 S2. No murmurs, rubs, gallops. Extremities: Warm, no edema. No cyanosis or clubbing. Assessment/Plan 1.??Hypertension ??Blood pressure was significantly elevated on intake. It did improve a bit on my recheck to 172/66.?? His blood pressures are chronically elevated. He attributes his lightheadedness to high blood pressure interestingly. There was some concern that amlodipine was previously??causing his lightheadedness. Apparently he did not notice any improvement??even after coming off of amlodipine. After some discussion, we agreed to increase amlodipine to bring his blood pressure under better control. He will call with any issues.?? - Increase amlodipine 5mg daily. - Nurse blood pressure check in 2-4 weeks.?? 2.??Hyperlipidemia ??Continue pravastatin 80mg daily.?? 3.??PVCs (premature ventricular contractions) ??Rare PVCs on recent Holter monitor. No atrial fibrillation noted.?? 4.??Coronary artery calcification seen on CT scan ??Continues on statin and aspirin.?? Orders: Amlodipine, 5 mg, 1, tablet, By Mouth, Daily, # 30 tablet, Refills 2, Tot. Refills 2, Maintenance, 03/29/24 16:27:00 EST, Route to Pharmacy Electronically, [id number], Partial fill upon patient request if the prescription is for a schedule II opioid . Follow up Appointment ?? Follow up in 2 months.?? 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, acquired Frequent urination GERD - Gastro-esophageal reflux disease H/O: CVA (2012), residual right numbness, swallow issue History of stroke in adulthood Hyperlipidemia Hypertension Low calcium levels Low hemoglobin Lower extremity pain, right MONA (obstructive sleep apnea) Pericardial effusion Pleural effusion Pulmonary nodule, left PVD (peripheral vascular disease) Restless legs Shallow breathing Unintentional weight loss Procedure/Surgical History Esophagogastroduodenoscopy and biopsy: 09/05/14 Colonoscopy and EGD: 05/14/13 Home Medications acetaminophen-hydrocodone 325 mg-7.5 mg oral tablet, 1 tablet, By Mouth, Every 8 hours, PRN albuterol CFC free 90 mcg/inh inhalation aerosol, 1 puffs, Inhalation, 4 times a day, PRN amLODIPine 5 mg oral tablet, 5 mg= 1 tablet, By Mouth, Daily, 2 refills aspirin 81 mg oral capsule, 81 mg= 1 capsule, By Mouth, Every 24 hours BiPAP Equipment Compression Stockings, See Instructions donepezil 5 mg oral tablet, 1 tablet, By Mouth, Daily at bedtime doxepin 10 mg/ml oral concentrate, 15 mg= 1.5 mL, By Mouth, Daily at bedtime Evaluate and treat for orthotics, See Instructions folic acid 1 mg oral tablet, 5 tablets, By Mouth, Daily indomethacin 75 mg oral capsule, extended release, 75 mg= 1 capsule, By Mouth, Daily, PRN, 1 refills Iron Chews 15 mg oral tablet, chewable, 15 mg= 1 tablet, By Mouth, Daily magnesium aspartate, 1230 mg, By Mouth, 2 times a day methotrexate 2.5 mg oral tablet, 8 tablet, By Mouth, Every week MiraLax oral powder for reconstitution, 17 Gm, By Mouth, Daily Multivitamin, By Mouth, Daily Myrbetriq 25 mg oral tablet, extended release, 25 mg= 1 tablet, By Mouth, Daily, 11 refills Orthotics, See Instructions pravastatin 80 mg oral tablet, 1 tablet, By Mouth, Daily, 3 refills PT, See Instructions tadalafil 10 mg oral tablet, See Instructions, 2 refills Vitamin C, By Mouth, Daily Vitamin D3, By Mouth Lab Results Cardiology Labs WBC: 8.8 k/mm3 (12/26/23) RBC:??4.66 m/mm3??Low (12/26/23) Hgb: 14.6 Gm/dL (12/26/23) Hct: 43.3 % (12/26/23) MCV: 92.9 femtoliters (12/26/23) MCH: 31.3 pg (12/26/23) MCHC: 33.7 g/dL (12/26/23) Platelet Count: 212 k/mm3 (12/26/23) RDW-SD: 45.7 femtoliters (12/26/23) Nucleated RBC (Automated): 0 #/100 WBC'S (12/26/23) Abs. Neut: 5.6 k/mm3 (12/26/23) Abs. Lymph: 2.4 k/mm3 (12/26/23) Abs. Ceiba: 0.6 k/mm3 (12/26/23) Abs. Eo: 0 k/mm3 (12/26/23) Abs. Baso: 0 k/mm3 (12/26/23) Neut %: 64.5 % (12/26/23) Ceiba %: 6.8 % (12/26/23) Eos %: 0.3 % (12/26/23) Baso %: 0.5 % (12/26/23) Imm Gran: 0.3 % (12/26/23) Abs. Imm Gran: 0 k/mm3 (12/26/23) Sodium: 140 mmol/L (12/26/23) Potassium: 3.7 mmol/L (12/26/23) Chloride: 101 mmol/L (12/26/23) Bicarbonate Level: 28 mmol/L (12/26/23) Glucose Level: 97 mg/dL (12/26/23) BUN: 8 mg/dL (12/26/23) BUN: 15 mg/dL (12/14/23) Creatinine-Blood: 0.81 mg/dL (12/26/23) Calcium: 9.4 mg/dL (12/26/23) Protein, Total: 7.7 Gm/dL (12/26/23) Albumin:??4.9 Gm/dL??High (12/26/23) Alkaline Phosphatase: 61 units/L (12/26/23) AST (SGOT): 22 units/L (12/26/23) ALT (SGPT): 17 units/L (12/26/23) Bilirubin, Total: 0.9 mg/dL (12/26/23) Diagnostic Impression ECG ECG 12-Lead ?? 16:06:08 Ventricular Rate: 60 BPM Atrial Rate: 60 BPM P-R Interval: 196 ms QRS Duration: 134 ms Q-T Interval: 442 ms QTC Calculation(Bazett): 442 ms P [place]: 62 degrees R [place]: -76 degrees T [place]: 36 degrees Normal sinus rhythm Right bundle branch block Left anterior fascicular block Bifascicular block Abnormal ECG When compared with ECG of 02-MAR-2023 14:45, Right bundle branch block has replaced Non-specific intra-ventricular conduction block Nonspecific T wave abnormality has replaced inverted T waves in Inferior leads T wave amplitude has increased in Anterior leads Confirmed by Dewayne Quezada ([id number]) on 06/05/2023 8:50:20 AM ?? Paron: Dewayne Quezada ?? Signed By: Dewayne Quezada MD ?? ECG 12-Lead ?? 16:06:08 Please click on pdf link to open report ?? Signed By: Dewayne Quezada MD Echo Echocardiogram - Complete ?? 14:18:17 Summary The left ventricular size is normal. There is mild asymmetric hypertrophy due to a sigmoid septum. 3D volumetric ejection fraction is calculated at 52%. There are no definite regional wall motion abnormalities. Indeterminate diastolic function. ?? The left atrium is normal in size. ?? The aortic valve is trileaflet. The aortic valve appears mildly thickened. There is mild aortic regurgitation. There is no aortic stenosis. ?? There is mild dilation of the aortic root, 4.3 cm. ?? The right ventricle is normal in size and function. An accurate pulmonary artery pressure could not be obtained. ?? Comparison Comparison is made to the study of February 12, 2018. Aortic root measures slightly larger (previously 4 cm). ?? Signature ?? Signed By: Christiano Chamberlain MD Note * Den Wong: PERFORM Event Display: Patient Education/Instruction Authored Date: [id number] Ambulatory Adult Visit Summary [facility] [address] [address] Name: JOCE ANDERSON : 1945?? Visit: 03/29/2024 16:00?? Ambulatory Visit Instructions ?? Your Care Team Primary Care Provider Maria Vázquez DO? This Visit Provider Enrique Byrd Your Diagnosis Hyperlipidemia Hypertension PVCs (premature ventricular contractions) Coronary artery calcification seen on CT scan Vitals Signs Pulse Rate: 67 bpm Height: 180 cm Systolic Blood Pressure:??189 mm Hg??High Weight: 77 kg Diastolic Blood Pressure: 69 mm Hg Body Mass Index: 23.77 kg/m2 Oxygen Saturation: 100 % Body surface area: 1.96 What to do next Scheduled Follow-Up Appointments Monday 3:00 PM EST ?? Where: [facility] [address] [address]- Status: Pending Monday 1:50 PM EST ?? With: Hemant Dumont MD Where: [facility] [address] [place] [address]- Status: Pending Monday 3:00 PM EST ?? With: Enrique Byrd Where: [facility] [address] [address]- Status: Pending Monday 8:00 AM EST ?? With: Angelica Ang NP Where: [facility] Status: Pending Medications The list below reflects the information in our records and provided by you today along with any changes made during this visit. Please continue your medications until treatment is completed or stopped by your provider. If this is different from the information you have or there are other questions,please contact the prescribing provider. What How Much When Instructions Changed Amlodipine (amLODIPine 5 mg oral tablet) 1 tab(s) Oral Daily Pickup at [id number] Unchanged Acetaminophen / Hydrocodone (acetaminophen-hydrocodone 325 mg-7.5 mg oral tablet) 1 tab(s) Oral Every 8 hours as needed for Pain , Severe NEEDED FOR SEVERE PAIN DUE TO ANKYLOSING SPONDYLITIS ?? Unchanged Albuterol (albuterol CFC free 90 mcg/ inh inhalation aerosol) 1 puff(s) Inhalation 4 times a day as needed for as needed for wheezing Unchanged Ascorbic Acid (Vitamin C) Oral Daily Unchanged Aspirin (aspirin 81 mg oral capsule) 1 capsule Oral Every 24 hours Unchanged Carbonyl Iron (Iron Chews 15 mg oral tablet, chewable) 1 tab(s) Oral Daily Unchanged Cholecalciferol (Vitamin D3) Oral Unchanged Donepezil (donepezil 5 mg oral tablet) 1 tab(s) Oral Daily at Bedtime Unchanged Doxepin (doxepin 10 mg/ ml oral concentrate) 1.5 Milliliter Oral Daily at Bedtime Unchanged Durable Medical Equipment (BiPAP Equipment) Unchanged Durable Medical Equipment (Compression Stockings) See instructions surgical, calf length 20-30 mm Hg ?? Unchanged Durable Medical Equipment (Orthotics) See instructions [employer] Custom orthotics 1. ??Siff Top 2. ??MT offloadng bar all the way across DX: ??metatarsalgia ?? Unchanged Folic Acid (folic acid 1 mg oral tablet) 5 tablets Oral Daily Duration: 90 Days Unchanged Indomethacin (indomethacin 75 mg oral capsule, extended release) 1 capsule Oral Daily as needed for acute back pain with food or milk and TUMS. ?? Unchanged magnesium aspartate 1,230 Milligram Oral Twice a day Unchanged Methotrexate (methotrexate 2.5 mg oral tablet) 8 tab(s) Oral Every week Duration: 28 Days Unchanged mirabegron (Myrbetriq 25 mg oral tablet, extended release) 1 tab(s) Oral Daily do not crush or chew ?? Unchanged Miscellaneous Rx (Evaluate and treat for orthotics) See instructions right foot deformity and pain, dx M21.6X1, M79.671 ?? Unchanged Miscellaneous Rx (PT) See instructions please eval pt for PT ?? Unchanged Multivitamin Oral Daily Unchanged Polyethylene Glycol 3350 (MiraLax oral powder for reconstitution) 17 gram Oral Daily Unchanged Pravastatin (pravastatin 80 mg oral tablet) 1 tab(s) Oral Daily Unchanged tadalafil (tadalafil 10 mg oral tablet) See instructions take 1 - 2 tablets by mouth daily as needed 30 minutes prior to sexual intercourse ?? Pharmacy Information [facility]: [address], [place] [id number] [phone] Medications and Immunizations Administered Medications Given During Visit No medications given during this visit.?? Allergies (NKA means No Known Allergies) OxyCONTIN sulfADIAZINE Common Emergency Awareness Tips IS IT A STROKE? Act FAST and Check for these signs: FACE Does the face look uneven? ARM Does one arm drift down? SPEECH Does their speech sound strange? TIME Call at any sign of stroke ?? Heart Attack Signs Chest discomfort: Most heart attacks involve discomfort in the center of the chest and lasts more than a few minutes, or goes away and comes back. It can feel like uncomfortable pressure, squeezing, fullness or pain. Discomfort in upper body: Symptoms can include pain or discomfort in one or both arms, back, neck, jaw or stomach. Shortness of breath: With or without discomfort. Other signs: Breaking out in a cold sweat, nausea, or lightheaded. Remember, MINUTES DO MATTER. If you experience any of these heart attack warning signs, call to get immediate medical attention! ?? Smoking can increase your chances of developing chronic health problems and can cause harmful effects to other family members in your house. If you smoke, you are strongly encouraged to quit. Please call [employer] [facility] at [phone] or [phone] ([phone]) or log in to [email or web address] for referrals to smoking cessation programs. ?? The National Suicide Prevention Hotline is available 14/11 if you or someone you know needs to find a reason to keep living. By calling 5-265-076-[employer] (8347) you'll be connected to a skilled, trained counselor at a crisis center in your area. [facility]Line Portal You can view and manage your care through the patient portal or by using a health care jenn of your choosing. [employer] is a website that allows you to securely view your medical information including your hospital discharge summary, office visit summaries, medications and follow-up visits. You can also request appointments, renew medications, and request access to your medical information using a health care jenn of your choosing, or just ask a question. You can enroll at [email or web address] or register during your next office visit. [facility], in keeping with [facility] guidance, no longer requires face masks for staff, patientsor visitors in most situations. Similiar to time spent indoors at other locations, there is the chance that you were exposed to repiratory viruses during your time with us (such as flu or COVID-19). If you develop symptoms concerning for a viral respiratory infection, please seek testing (and treatment if indicated) from your medical provider or home test kit. ?? Disclaimer: The information provided is of a general nature and is intended to be used in conjunction with the recommendations and advice of your health care practitioner. Every effort has been made to ensure that the information provided is accurate and complete at the time it is provided to you however, as your needs change, or, as new information becomes available, different or additional instructions may be required. ?? If you have questions, please consult with your primary care provider or pharmacist, as appropriate. This information is not intended to serve as substitution for assessment and evaluation by a qualified health care provider. If you do not have a primary care provider, you may find a [facility] provider by calling [facility]Line [facility] at [phone]. Patient Care team information Care Team Personnel Name: Maria Vázquez DO Position: [facility] Physician - Primary Care Member Role: PCP Address: [address] [place] [address] Telecom: Care Team Related Persons Name: JOSELIN ANDERSON Name: JOCE ANDERSON JR Insurance Providers Guarantor name: JOCE ANDERSON Health Plan Information #: 1 Payer: [facility] [employer] [facility] Member Number: [id number] Policy Number: NA Group Number: [id number] Health Plan Information #: 2 Payer: [facility] [employer] [facility] [employer] Member Number: [id number] Policy Number: NA Group Number: [id number]
--- OUTSIDE RECORDS SUMMARY | 2024-04-09 13:12 | XMS_ITS | Continuity of Care Document ---
Author Organization [facility] Address [address] [place] [address]- Care Team Providers Care Administrative Program Specialist Name Role Phone Maria Vázquez DO Primary Care Physician [phone] Encounter [facility] Date(s): 03/04/24 - 04/03/[address] [address]- Attending Physician: Admtr, Ar8 Admitting Physician: Admtr, Ar8 Referring Physician: Admtr, Ar8 Encounter Type: Triage Allergies, Adverse Reactions, Alerts Substance Criticality Severity [...] vaccine, inactivated 1 04/13/12 Gi ottoniel SARS-CoV-2(COVID-19)mRNA-LNP vac([id number]) 02/22/24 Recorded pneumococcal 20-valent conjugate vaccine 03/28/23 Recorded SARS-CoV-2(COVID-19)mRNA-LNP vac([id number]) 02/22/23 Recorded SARS-CoV-2 (COVID-19) mRNA BNT-162b2 vac [...] Given 1Admin Note: vis given 2Result Comment: [id number] 3Admin Note: vis given 4Admin Note: [facility] Medications acetaminophen-hydrocodone 325 mg-7.5 mg oral tablet 1 tablet, By Mouth, Every 8 hours, PRN Pain , Severe, NEEDED FOR SEVERE PAIN DUE TO ANKYLOSING SPONDYLITIS, # 20 tablet, 0 Refills, Maintenance, 02/28/24 12:06:00 PM EST, [facility], Partial fill upon patient request [...] PM EDT, Aerosol, Route to Pharmacy Electronically, [id number], [facility], 178, cm, 02/16/23 13:12:00 EDT, Height, 74.4, kg, 02/02/23 1:07:00 EDT, Dry Weight Start Date: 02/20/23 Status: Ordered Quantity: 6.7 Unit: g Repeat number: 1 amLODIPine 5 mg oral tablet 5 mg, 1, tablet, By Mouth, Daily, # 30 tablet, Refills 2, Tot. Refills 2, Maintenance, 03/29/24 4:27:00 PM EST, Route to Pharmacy Electronically, [facility], Partial fill upon patient request [...] 11:06:00 AM EDT, Route to Pharmacy Electronically, [facility], 175, cm, 12/18/23 14:46:00 EDT, Height, 78.1, kg, 07/14/23 14:14:00 EDT, Dry Weight Start Date: 12/19/23 Status: Ordered Quantity: 90.0 Unit: tablet Repeat number: 1 doxepin 10 mg/ml oral concentrate 1.5 mL = 15 mg, By Mouth, Daily at bedtime, # 135 mL, 0 Refills, Maintenance, 02/06/24 12:15:00 PM EDT, [facility], Partial fill upon patient request [...] 2:23:00 PM EDT, Route to Pharmacy Electronically, [facility], Partial fill upon patient request [...] Maintenance, 01/10/23 12:37:00 PM EDT, CR Capsule, [facility], Partial fill upon patient request [...] 0 Refills, Maintenance, 01/16/23 5:23:00 PM EDT, [facility], 176, cm, 01/10/23 9:28:00 EDT, Height, 78.5, kg, 06/03/22 13:22:00 EST, Dry Weight Start Date: 01/16/23 Stop Date: 02/13/23 Status: Ordered Quantity: 32.0 Unit: tablet Repeat number: 1 MiraLax oral powder for reconstitution = 17 Gm, By Mouth, Daily, # 510 Gm, 0 Refills, Maintenance, 12/19/23 9:41:00 AM EDT, REC Powder, [facility], Partial fill upon patient request [...] Maintenance, 01/15/24 3:21:00 PM EDT, ER Tablet, [facility], Partial fill upon patient request [...] 3 Refills, Maintenance, 07/24/23 12:25:00 PM EDT, [facility], 178, cm, 07/14/23 14:19:00 EDT, [...] Refills, Maintenance, 02/20/24 4:19:00 PM EDT, Tablet, [facility], Partial fill upon patient request [...] Active Unintentional weight loss Confirmed Active 1Dr [facility] [place] [facility] Social History Social History Type Response Smoking Status Former smoker, quit more than 30 days ago entered on: 07/11/23 Sex Sex Representation Male (finding) Cardiology * Event Display: Cardiovascular Result Scanned Authored Date: * Event Display: Cardiovascular Result Scanned Authored Date: EKG study * Event Display: EKG Authored Date: Laboratory * Event Display: Non [facility] Lab Results Authored Date: * Event Display: Non [facility] Lab Results Authored Date: * Event Display: Non [facility] Lab Results Authored Date: * Event Display: Non [facility] Lab Results Authored Date: Cardiology Consult note * Event Display: Consult Note Cardiology Authored Date: * Event Display: Consult Note Cardiology Authored Date: * Event Display: Consult Note Cardiology Authored Date: Radiology * Event Display: MRI Ankle/Foot, Non- BH Authored Date: Patient Care team information Care Team Personnel Name: Maria Vázquez DO Position: S Physician - Primary Care Member Role: PCP Address: [address] [place] [address] Telecom: Care Team Related Persons Name: JOSELIN ANDERSON Name: JOCE ANDERSON JR Insurance Providers Guarantor name: JOCE ANDERSON Health Plan Information #: 1 Payer: [facility] [employer] Member Number: NA Policy Number: NA Group Number: NA
--- NOTE | 2024-04-09 13:19 | A.OFFVIS_ITS ---
Vital Signs 04/09/24 13:23 Height 6 ft Weight 167 lb 12.348 oz BMI 22.8 BP 142/70 H Blood Pressure Location Lt brachial Position Sitting Pulse 64 Pulse Source Pulse Oximeter Pulse Oximetry (%) 95 Oxygen Delivery Method Room Air Intake Visit Reasons: OA/RA Intake Note: Patient presents for OA/RA. Allergies oxycodone [From OxyContin] Adverse Reaction (Unknown, Verified 10/19/23 13:00) Unknown sulfadiazine Adverse Reaction (Unknown, Verified 10/19/23 13:00) Unknown Medication List - Last Reconciled 04/09/24 by Juan Melvin MD amlodipine 2.5 mg PO DAILY aspirin 81 mg PO DAILY cholecalciferol (vitamin D3) 125 mcg PO DAILY donepezil 5 mg PO DAILY doxepin mg PO ferrous sulfate 325 mg PO DAILY folic acid 5 mg PO DAILY hydrocodone-acetaminophen 7.5-325 mg 1 tab PO Q8H PRN indomethacin ER 75 mg PO DAILY PRN magnesium oxide 250 mg PO DAILY methotrexate sodium 20 mg (8 x 2.5 mg) PO QWEEK multivitamin (Daily Multi-Vitamin tablet) 1 tab PO DAILY pravastatin 80 mg PO DAILY HPI Comments Details: 78-year-old male with ankylosing spondylitis returns for follow-up. On methotrexate 20 mg weekly and folic acid 6 X 0.8 mg once weekly. (he buys folic acid [id number]) States that he is doing reasonably well overall. He states that his right knee has been giving out on him more frequently and he made an appointment to see an orthopedist soon. He believes that his inflammatory symptoms are well controlled recently. He believes he may have had 1 episode of iritis since he saw me 6 months ago which was rapidly treated with prednisolone eyedrops. Initial history: This is a 77-year-old male with past medical history of ankylosing spondylitis who presents as a new patient. His previous eumatologist left the practice. Patient stated that around 25 years ago he was diagnosed with iritis and ultimately was diagnosed with ankylosing spondylitis. He was initially treated only with hydrocodone 10 in the medicine was added. Per patient he does not recall being started on a biologic until he was evaluated by Dr. Urbina 2-3 years ago when he was started on methotrexate. Patient stated that he would usually get iritis about once a year but since getting started on iritis it has been less frequent. He cannot tell whether methotrexate is helping him otherwise. Per Dr. Urbina patient's inflammatory markers normalized on methotrexate. States that he has morning stiffness of his back lasting 1 hour improved with stretching and moving around. He had a stroke 2-3 years ago and since then has had some swallowing difficulties but does not believe he food gets stuck in his throat or chest. Denies any bowel complaints. He had a colonoscopy years ago which was unremarkable. 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 Ankylosing spondylitis Surgical History Hx of colonoscopy History of esophagogastroduodenoscopy (EGD) Family History Mother Dementia Schizophrenia Bipolar 1 disorder Father AAA (abdominal aortic aneurysm) Bladder cancer Dementia Hyperlipidemia Hypertension Rheumatoid arthritis Social History Household Members: None Alcohol intake: former Patient Tobacco Use Status: Former Tobacco user Current occupational status: retired Current occupation: [employer] Systems Eyes Reports no additional complaints Musc Reports arthralgias and Reports stiffness Physical Exam Vital Signs: Last Vital Signs Pulse 64 04/09/24 13:23 BP 142/70 H 04/09/24 13:23 Pulse Ox 95 04/09/24 13:23 Oxygen Delivery Method Room Air 04/09/24 13:23 BMI result Body Mass Index 22.8 Const General: cooperative and healthy appearing Nutritional Appearance: average body habitus Orientation/consciousness: patient oriented x3 Limitations: no limitations HEENT Head: Yes normocephalic and Yes atraumatic Resp Effort & Inspection: normal respiratory effort and able to speak in complete sentences Auscultation: clear to auscultation bilaterally Cardio Rate: regular rate Rhythm: regular rhythm Heart sounds: S1 normal heart sound present GI Inspection: No distended Palpation (GI): Soft to palpation and nontender Neuro General: patient oriented x3 Extrem Other: Negative Trevin's test bilaterally Osteoarthritic changes of both hands with Heberden's and Mimi's nodes Significant bilateral knee crepitus Right knee pain with flexion and extension Right foot deformity no ankle swelling or tenderness today Assessment & Plan Assessment & Plan (1) Ankylosing spondylitis: Comment: dx around 1997. 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 Patient was diagnosed approx 25 years ago, he had recurrent iritis and back stiffness. Patient has done fairly well on methotrexate over the years Today patient is doing very well overall. There is no active synovitis, symptoms are largely related to degenerative arthritis Recent labs showed mild transaminitis. Patient has been on methotrexate for years without any side effects recently he has been drinking 3 alcoholic beverages a week, he has a new girlfriend, his amlodipine dose was recently increased to 5 mg daily and was started on a medication for bladder but does not remember its name Advised patient to repeat blood work in 2 weeks. 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: Code(s): Z79.631 - assisted (current) use of antimetabolite agent Category: Medical Plan: Get routine safety monitoring labs every 3-6 months (3) Osteoarthritis of right knee: Code(s): M17.11 - Unilateral primary osteoarthritis, right knee Category: Medical Qualifiers: Osteoarthritis type: primary Qualified Code(s): M17.11 - Unilateral primary osteoarthritis, right knee Plan: Appointment with Orthopedics soon (4) Internal derangement of knee: Code(s): M23.90 - Unspecified internal derangement of unspecified knee Category: Medical Qualifiers: Laterality: right Qualified Code(s): M23.91 - Unspecified internal derangement of right knee Plan: Follow-up with orthopedics Plan I spent 35 minutes reviewing patient's chart, evaluating patient, ordering diagnostic workup, counseling patient and documenting in the chart Orders: Orders Erythrocyte Sedimentation Rate 2 Weeks M45.0 - Ankylosing spondylitis of multiple sites in spine, Z79.631 - 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
[2024-04-09 13:23] VITALS: BP 142/70; PULSE 64; O2SAT 95; BMI 22.8
== END 2024-04-09 13:55 | disposition home or self-care (01) ==
PROVIDERS: Visit Provider Student in an Organized Health Care Education/Training Program
DX: M45.0 Ankylosing spondylitis of multiple sites in spine (principal); Z79.631 Long term (current) use of antimetabolite agent; M17.11 Unilateral primary osteoarthritis, right knee; M23.91 Unspecified internal derangement of right knee
CPT/HCPCS: 99214; G2211

== ENCOUNTER → 2024-04-09 13:10 | Outpatient (BNVA) | payer MEDICARE, SELFPAY | PROVIDERS: Visit Provider Student in an Organized Health Care Education/Training Program | DX: M45.0 Ankylosing spondylitis of multiple sites in spine (principal); M17.11 Unilateral primary osteoarthritis, right knee; M23.91 Unspecified internal derangement of right knee; Z79.631 Long term (current) use of antimetabolite agent | CPT/HCPCS: 99212 ==

== ENCOUNTER 2024-07-16 13:11 | Outpatient (AMB) | payer MEDICARE, SELFPAY ==
[2024-07-16 13:14] VITALS: BP 122/62; PULSE 61; O2SAT 99; BMI 22.4
--- NOTE | 2024-07-16 13:14 | A.OFFVIS_ITS ---
Vital Signs 07/16/24 13:14 Height 6 ft Weight 165 lb 5.547 oz BMI 22.4 BP 122/62 Blood Pressure Location Lt brachial Position Sitting Pulse 61 Pulse Source Pulse Oximeter Pulse Oximetry (%) 99 Oxygen Delivery Method Room Air Intake Visit Reasons: Intake Note: Patient last seen by Doctor Juan Melvin on 04/09/24. Presents today for follow up and test results. Allergies oxycodone [From OxyContin] Adverse Reaction (Unknown, Verified 07/16/24 13:16) Unknown sulfadiazine Adverse Reaction (Unknown, Verified 07/16/24 13:16) Unknown HPI Comments Details: Patient is a 79-year-old male with hypertension, hyperlipidemia, polyarticular osteoarthritis and ankylosing spondylitis here today for follow up Interval History: Patient last seen 04/09/[address] Melvin. At that time patient was on methotrexate 20 mg weekly and folic acid 6 x 0.8 mcg once weekly (buys folic acid [id number]), he reported doing reasonably well noted an episode of iritis which he treated with prednisolone eyedrops. Today patient reports no further eye issues. Does note that his eyes feel more watery than normal. No new arthritis symptoms. Planning to get knee replacement in September Rheumatologic History: dx around 1997. 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 Melvin: This is a 77-year-old male with past medical history of ankylosing spondylitis who presents as a new patient. 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 Patient stated that around 25 years ago he was diagnosed with iritis and ultimately was diagnosed with ankylosing spondylitis. He was initially treated only with hydrocodone 10 in the medicine was added. Per patient he does not recall being started on a biologic until he was evaluated by Dr. Urbina 2-3 years ago when he was started on methotrexate. Patient stated that he would usually get iritis about once a year but since getting started on iritis it has been less frequent. He cannot tell whether methotrexate is helping him otherwise. Per Dr. Urbina patient's inflammatory markers normalized on methotrexate. States that he has morning stiffness of his back lasting 1 hour improved with stretching and moving around. He had a stroke 2-3 years ago and since then has had some swallowing difficulties but does not believe he food gets stuck in his throat or chest. Denies any bowel complaints. He had a colonoscopy years ago which was unremarkable. 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 Ankylosing spondylitis Surgical History Hx of colonoscopy History of esophagogastroduodenoscopy (EGD) Family History Mother Dementia Schizophrenia Bipolar 1 disorder Father AAA (abdominal aortic aneurysm) Bladder cancer Dementia Hyperlipidemia Hypertension Rheumatoid arthritis Social History Household Members: None Alcohol intake: former Patient Tobacco Use Status: Former Tobacco user Current occupational status: retired Current occupation: [employer] Review of Systems Const Details: Review of Systems Constitutional: Denies fever, chills, weight loss ENT: Denies vision changes, eye pain or eye redness, dental caries, dry mouth GI: Denies nausea, vomiting, diarrhea, abdominal pain, change in BM Pulm: Denies SOB, MAKI, hemoptysis, wheezing Cards: Denies chest pain, palpitations Skin: Denies Raynaud's, rash, nail changes, photosensitivity, 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 Well appearing and in no apparent painful distress HEENT Conjunctiva and sclera clear. ?Pupils equal round and reactive to light. ?No lym phadenopathy. ? CHEST/RESPIRATORY SYSTEM Normal respiratory effort and able to speak in complete sentences. ?Clear to auscultation bilaterally. ?No crackles, rales, rhonchi, wheezes heard. CARDIAC SYSTEM Regular rate and rhythm. ?S1 and S2 heard no murmurs. ?Radial pulses intact bilaterally MSK Hands: ?Good tuck pointer strength bilaterally. No deformities noted. ?No synovitis noted to the MCPs, PIPs or DIPs. ?No tenderness to palpation of these joints. Heberden's and Mimi's nodes noted. Wrists: ?Full range of motion at the wrists without pain. ?No tenderness to palpation or synovitis noted to the wrists. Elbows: Full range of motion without pain. No tenderness, weakness, swelling, increased warmth or erythema. Shoulders: Range of motion limited to 90 degrees abduction bilaterally. No tenderness, weakness, swelling, increased warmth or erythema. Hips: Full range of motion without pain. Knees: ?Full range of motion. ?No tenderness, swelling, increased warmth or erythema.? Bilateral crepitations felt Ankles: Full range of motion. ?No tenderness, swelling, increased warmth or erythema.? Feet: ?Negative squeeze test. ?No tenderness to palpation or swelling of the MTPs. Tender points:?No tenderness to palpation of the bilateral trapezius, supraspinatus, greater trochanters, anterior costochondral junctions, bilateral gluteal areas, bilateral suboccipital muscle insertions Good flexibility to the lower back SKIN Skin intact without rashes. Results Reviewed Results Reviewed: [facility] results reviewed 04/2024 AST/ALT cr 0.87 Assessment & Plan Assessment & Plan (1) Ankylosing spondylitis: Comment: dx around 1997. 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 Overall doing well and patient is stable on current medication with methotrexate. Discussed following up with Ophthalmology to see if he is having recurrent iritis or uveitis. As this may require different immunosuppression Plan - Methotrexate 20mg weekly PO - Folic acid 0.8mcg x 6 once weekly OTC - RTC 4 months - Labs before visit: CBC, CMP, ESR, CRP, hepatitis panel, T spot (2) Osteoarthritis of right knee: Code(s): M17.11 - Unilateral primary osteoarthritis, right knee Category: Medical Qualifiers: Osteoarthritis type: primary Qualified Code(s): M17.11 - Unilateral primary osteoarthritis, right knee Plan: #OA right knee Patient planning for right total knee replacement in September Patient's disease is currently in remission and there is no restrictions from a rheumatologic standpoint for proceeding with surgery Patient is to hold his methotrexate on the day of the surgery ( are his methotrexate days) and he is to resume his methotrexate 1 week after the surgery (3) 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 Limit alcohol and avoid Bactrim ? Monitoring: ?CBC, BMP, LFTs every 3-4 months and hepatitis serologies as needed Plan I spent 35 minutes reviewing the record and labs, taking a history, examining the patient, discussing the treatment plan, ordering diagnostic work up and documenting in the medical record Coding Level of Care Code Est Pt Level 4 (14379) Complex EM visit Add On G2211 Diagnoses Ankylosing spondylitis of multiple sites in spine M45.0 Ankylosing spondylitis location: multiple sites in spine Primary osteoarthritis of right knee M17.11 Osteoarthritis type: primary rn long term care methotrexate user Z79.631
== END 2024-07-16 13:47 | disposition home or self-care (01) ==
LOC: HO.RHE 13:11
PROVIDERS: Visit Provider Student in an Organized Health Care Education/Training Program
DX: M45.0 Ankylosing spondylitis of multiple sites in spine (principal); M17.11 Unilateral primary osteoarthritis, right knee; Z79.631 Long term (current) use of antimetabolite agent
CPT/HCPCS: 99214; G2211

== ENCOUNTER → 2024-07-16 13:11 | Outpatient (BNVA) | payer MEDICARE, SELFPAY | PROVIDERS: Visit Provider Student in an Organized Health Care Education/Training Program | DX: M45.0 Ankylosing spondylitis of multiple sites in spine (principal); M17.11 Unilateral primary osteoarthritis, right knee; Z79.631 Long term (current) use of antimetabolite agent | CPT/HCPCS: 99212 ==

== ENCOUNTER 2024-12-05 14:25 | Outpatient (AMB) | payer MEDICARE, SELFPAY ==
[2024-12-05 14:28] VITALS: BP 130/64; PULSE 67; O2SAT 97; BMI 22.1
--- NOTE | 2024-12-05 14:28 | MHC.OFFVIS ---
Vital Signs 12/05/24 14:28 Height 6 ft Weight 162 lb 11.218 oz BMI 22.1 BP 130/64 Blood Pressure Location Lt brachial Position Sitting Pulse 67 Pulse Source Pulse Oximeter Pulse Oximetry (%) 97 Oxygen Delivery Method Room Air Intake Visit Reasons: follow up Intake Note: Patient presents for follow up on and lab results. Accompanied by: Significant Other Allergies oxycodone (From OxyContin) Adverse Reaction (Unknown, Verified 12/05/24 14:33) Unknown sulfadiazine Adverse Reaction (Unknown, Verified 12/05/24 14:33) Unknown Medication List - Last Reconciled 12/05/24 by Binta Frye MD amlodipine 2.5 mg PO DAILY aspirin 81 mg PO DAILY cholecalciferol (vitamin D3) 125 mcg PO DAILY donepezil 5 mg PO DAILY doxepin mg PO ferrous sulfate 325 mg PO DAILY folic acid 5 mg PO DAILY hydrocodone-acetaminophen 7.5-325 mg 1 tab PO Q8H PRN indomethacin ER 75 mg PO DAILY PRN magnesium oxide 250 mg PO DAILY methotrexate sodium 20 mg (8 x 2.5 mg) PO QWEEK multivitamin (Daily Multi-Vitamin tablet) 1 tab PO DAILY pravastatin 80 mg PO DAILY HPI Comments Details: Patient is a 79-year-old male with hypertension, hyperlipidemia, polyarticular osteoarthritis and ankylosing spondylitis here today for follow up Interval History: Patient last seen 07/16/24 with me - On methotrexate 20mg weekly PO, folic acid - No further eye issues - no new joint pain - Knee replacement in September Today - On methotrexate 20mg weekly PO, folic acid - Had right knee replacement September 2024 - Still doing PT - Doing well overall - Had an episode of a flare about 1 month ago but it was short lived Rheumatologic History: dx around 1997. 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 Melvin: This is a 77-year-old male with past medical history of ankylosing spondylitis who presents as a new patient. 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 Patient stated that around 25 years ago he was diagnosed with iritis and ultimately was diagnosed with ankylosing spondylitis. He was initially treated only with hydrocodone 10 in the medicine was added. Per patient he does not recall being started on a biologic until he was evaluated by Dr. Urbina 2-3 years ago when he was started on methotrexate. Patient stated that he would usually get iritis about once a year but since getting started on iritis it has been less frequent. He cannot tell whether methotrexate is helping him otherwise. Per Dr. Urbina patient's inflammatory markers normalized on methotrexate. States that he has morning stiffness of his back lasting 1 hour improved with stretching and moving around. He had a stroke 2-3 years ago and since then has had some swallowing difficulties but does not believe he food gets stuck in his throat or chest. Denies any bowel complaints. He had a colonoscopy years ago which was unremarkable. 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 Ankylosing spondylitis Surgical History (Updated 12/05/24 @ 14:34 by Daniela Patterson [facility]) History of total right knee replacement Hx of colonoscopy History of esophagogastroduodenoscopy (EGD) Family History Mother Dementia Schizophrenia Bipolar 1 disorder Father AAA (abdominal aortic aneurysm) Bladder cancer Dementia Hyperlipidemia Hypertension Rheumatoid arthritis Social History Household Members: None Alcohol intake: former Patient Tobacco Use Status: Former Tobacco user Current occupational status: retired Current occupation: [employer] Review of Systems Const Details: Review of Systems Constitutional: Denies fever, chills, weight loss ENT: Denies vision changes, eye pain or eye redness, dental caries, dry mouth GI: Denies nausea, vomiting, diarrhea, abdominal pain, change in BM Pulm: Denies SOB, MAKI, hemoptysis, wheezing Cards: Denies chest pain, palpitations Skin: Denies Raynaud's, rash, nail changes, photosensitivity, 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 Well appearing and in no apparent painful distress MSK Hands Right Hand: Able to make a fist. No swelling or tenderness to palpation of these joints. Left Hand: Able to make a fist. No swelling or tenderness to palpation of these joints. Herbedens nodes noted bilaterally Wrists Right Wrist: Full ROM. 70 degrees of wrist flexion, 80 degrees of wrist extension. No swelling or TTP Left Wrist: Full ROM. 70 degrees of wrist flexion, 80 degrees of wrist extension. No swelling or TTP Elbows Right Elbow: Full ROM. No swelling or TTP. No TTP of the medial and lateral epicondyles Left Elbow: Full ROM. No swelling or TTP. No TTP of the medial and lateral epicondyles Shoulders Right shoulder: Decreased ROM. No swelling noted. No TTP of the AC joint, subacromial bursa or posterior shoulder Left shoulder: Decreased ROM. No swelling noted. No TTP of the AC joint, subacromial bursa or posterior shoulder Knees Right knee: Decreased ROM to the extension. Swelling and TTP of the knee with warmth. Pitting edema of the lower leg up to the Tibial tuberosity Left knee: Full ROM. No swelling noted. No TTP of the knee joint lie or pes anserine bursa. Crepitations felt Ankles Right ankle: Good ankle dorsiflexion and plantar flexion. No swelling. No TTP of the ankle joint Left ankle: Good ankle dorsiflexion and plantar flexion. No swelling. No TTP of the ankle joint Feet Right foot: Negative squeeze test Left foot: Negative squeeze test Tender points? No tenderness to palpation of the bilateral trapezius, supraspinatus, anterior costochondral junctions, bilateral suboccipital muscle insertions SKIN No rashes Vital Signs: Last Vital Signs Pulse 67 12/05/24 14:28 BP 130/64 12/05/24 14:28 Pulse Ox 97 12/05/24 14:28 Oxygen Delivery Method Room Air 12/05/24 14:28 BMI result Body Mass Index 22.1 Assessment & Plan Assessment & Plan (1) Ankylosing spondylitis: Comment: dx around 1997. 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 Overall doing well and patient is stable on current medication with methotrexate. 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 Limit alcohol and avoid Bactrim ? Monitoring: ?CBC, BMP, LFTs every 3-4 months and hepatitis serologies as needed Plan I spent 28 minutes reviewing the record and labs, taking a history, examining the patient, discussing the treatment plan, ordering diagnostic work up and documenting in the medical record Medications: Refilled methotrexate sodium 20 mg (8 x 2.5 mg) PO QWEEK 96 tabs 1RF M45.0 - Ankylosing spondylitis of multiple sites in spine Coding Level of Care Code Est Pt Level 3 (62550) Complex EM visit Add On G2211 Diagnoses Ankylosing spondylitis of multiple sites in spine M45.0 Ankylosing spondylitis location: multiple sites in spine Primary osteoarthritis of right knee M17.11 Osteoarthritis type: primary 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
--- OUTSIDE RECORDS SUMMARY | 2024-12-05 15:09 | XMS_ITS | Encounter Summary ---
Author Organization [facility] Address [address] [place] [phone] Phone Care Team Providers Care Tier In Name Role Phone Maria Vázquez DO Primary Care Provider [phone] Encounter Details Date Type Department Care Team (Late st Contact Info) Description 06/07/2024 Procedure [facility], Ct Scan - [address] [address] Social History Tobacco Use Types Packs/Day Years Used Date Smoking Tobacco: Former Smokeless Tobacco: Never Education Answer Date Recorded Are you interested in more education? Not on maria r e 08/20/2022 Are you concerned about learning? Not on file 08/20/2022 No 08/20/2022 No 08/20/2022 Digital Access Answer Date Recorded No 09/20/2022 No 09/20/2022 Reliable internet access at home? Not on file 09/20/2022 Device with a working camera? Not on file Sex and Gender Information Value Date Recorded Sex Assigned at Male 03/12/2024 4:45 PM EST Legal Sex Male 11:02 AM EDT Gender Identity Male 03/12/2024 4:45 PM EST Sexual Orientation Not on file documented as of this encounter Plan of Treatment Upcoming Encounters Date Type Department Care Team (Late st Contact Info) Description 01/08/2025 2:30 PM EDT Office Visit [facility] [address] [place] [address] Oliver Tapia MD [address] [facility], [facility] [place] [address] [email or web address] documented as of this encounter Visit Diagnoses Not on filedocumented in this encounter Care Teams Tier In Relationship Specialty Start Date End Date Maria VázquezDO [address] [place] [id number] PCP - General Family Medicine 03/12/24 documented as of this encounter Additional Source Comments The information contained in this document represents components of the legal health record. It is not the complete legal health record.[facility]
== END 2024-12-05 15:02 | disposition home or self-care (01) ==
LOC: HO.RHES 14:26
PROVIDERS: Visit Provider Student in an Organized Health Care Education/Training Program
DX: M45.0 Ankylosing spondylitis of multiple sites in spine (principal); M17.11 Unilateral primary osteoarthritis, right knee; Z79.631 Long term (current) use of antimetabolite agent
CPT/HCPCS: 99213; G2211

== ENCOUNTER → 2024-12-05 14:25 | Outpatient (BNVA) | payer MEDICARE, SELFPAY | PROVIDERS: Visit Provider Student in an Organized Health Care Education/Training Program | DX: M45.0 Ankylosing spondylitis of multiple sites in spine (principal); M17.11 Unilateral primary osteoarthritis, right knee; Z79.631 Long term (current) use of antimetabolite agent | CPT/HCPCS: 99212 ==